=== PATIENT | male | born 1970 | race Caucasian/White ===

== ENCOUNTER 2016-06-26 11:34 | Day surgery (SDC) | payer OTHER ==
[2016-06-24 18:08] VITALS: BMI 35.5
[~2016-06-26 11:34] MED LIST: LACTATED RINGERS 1,000 ML IV SCH; LIDOCAINE 1% 20 ML VIAL (10MG/ML) FOR IV START INTRADERMA PRN
[2016-06-26] MEDS ORDERED: fentaNYL (PF) 50 MCG/ML 2 ML AMP ONE (12:37)
[2016-06-26] MEDS ORDERED: MIDAZOLAM 2 MG/2 ML VIAL ONE (12:37)
[2016-06-26] MEDS ORDERED: PROPOFOL 10 MG/ML 20 ML VIAL IV ONE (12:37)
[2016-06-26 12:38] VITALS: RESP 16; TEMP 98
--- NOTE | 2016-06-26 13:30 | P.OP ---
Date of Procedure: 06/26/16 Preoperative Diagnosis: Large villous polyp of the hepatic flexure Postoperative Diagnosis: Multiple colon polyps: Ascending colon, Hepatic flexure, Proximal transverse colon Procedure(s) Performed: Colonoscopy with polypectomy, marking of site with SPOT ink for preop localization Anesthesia: GETA Pathology: other Condition: stable Disposition: PACU Indications for Procedure: Preop localization for excision of large polyp Operative Findings: Ascending colon benign polyp completely removed Prosximal TV colon poly completely removed HEaptic flexure colon was marked Description of Procedure: The patient was brought to the endoscopy suite and placed in lateral decubitus position. IV sedation was given as per anesthesia team. A timeout was performed to verify correct patient and correct procedure. Perianal examination did not reveal any external hemorrhoids.. A well- lubricated endoscope was passed per rectally and was gradually advanced beyond the sigmoid colon, splenic flexure, transverse colon, hepatic flexure and cecum. The ileocecal valve was visualized. Then minimal diverticulosis noted without any evidence of diverticulitis. Scope was gradually withdrawn inspecting all the mucosal surfaces. A polyp was seen in the ascedning colon and prosimal transvers oclon that were both removed with hot snare polypectomy. A large villous polyp at the hepatic flexure was marked for preop localization with SPOT dye. No other polyps or masses noted. Retroflexed in the rectum and was normal but limited by stool . Prep was poor. The scope was gradually withdrawn. Patient tolerated the procedure well and was taken to post anesthesia care unit in stable condition.
[2016-06-26 13:48] VITALS: BP 136/92; PULSE 70
== END 2016-06-26 14:23 | disposition home or self-care (01) ==
LOC: ORWHC2ENDO 11:34
PROVIDERS: ATTEND Surgery
DX: D12.2 Benign neoplasm of ascending colon (principal); K57.30 Diverticulosis of large intestine without perforation or abscess without bleeding; I10 Essential (primary) hypertension; E78.5 Hyperlipidemia, unspecified; E78.00 Pure hypercholesterolemia, unspecified; Z88.0 Allergy status to penicillin; Z79.899 Other long term (current) drug therapy; Z79.82 Long term (current) use of aspirin; Z86.010 Personal history of colon polyps; Z86.73 Personal history of transient ischemic attack (TIA), and cerebral infarction without residual deficits; Z87.891 Personal history of nicotine dependence
CPT/HCPCS: 88305; 45385; 44404; J2250; J3010; J2704; 80048; 85027; 85610; 99153

== ENCOUNTER 2016-06-27 05:55 | Inpatient (IN) | payer OTHER ==
[2016-06-24 18:26] VITALS: BMI 35.5
[~2016-06-27 05:55] MED LIST changes: +DEXAMETHASONE SOD PHOSPHATE 10 MG/ML 1 ML VIAL IV ONE; +HEPARIN SODIUM,PORCINE 5,000 UNIT/ML 1 ML VIAL SQ ONE; +HYDROmorphone 1 MG/ML 1 ML SYRINGE IVP PRN; -LACTATED RINGERS 1,000 ML IV SCH; -LIDOCAINE 1% 20 ML VIAL (10MG/ML) FOR IV START INTRADERMA PRN; +MIDAZOLAM 2 MG/2 ML VIAL IV PRN; +ONDANSETRON 4 MG/2 ML VIAL IVP ONE; +SCOPOLAMINE 1.5MG/72HR PATCH TRANSDERM ONE; +ceFAZolin 2 GM in SODIUM CHLORIDE 0.9% 100 ML IVPB ONE; +metroNIDAZOLE-NS PMX 500 MG in SALINE 1 100ML.BAG IVPB ONE
[2016-06-27] MEDS ORDERED: LIDOCAINE 1% 20 ML VIAL (10MG/ML) FOR IV START INTRADERMA ONE (06:37)
[2016-06-27] MEDS ORDERED: fentaNYL (PF) 50 MCG/ML 2 ML AMP IV ONE (07:06)
[2016-06-27] MEDS ORDERED: NALOXONE 0.4 MG/ML 1 ML VIAL IV PRN (07:19)
[2016-06-27] MEDS: LACTATED RINGERS 1,000 ML IV SCH (07:29)
[2016-06-27] MEDS ORDERED: fentaNYL (PF) 50 MCG/ML 2 ML AMP ONE (07:43)
[2016-06-27] MEDS ORDERED: VECURONIUM 10 MG VIAL IV ONE (07:43)
[2016-06-27] MEDS ORDERED: SUCCINYLCHOLINE CHLORIDE 100 MG/5 ML SYR IV ONE (07:43)
[2016-06-27] MEDS ORDERED: GLYCOPYRROLATE 0.2 MG/ML 2 ML VIAL ONE (07:43)
[2016-06-27] MEDS ORDERED: hydrALAZINE HCL 20 MG/ML 1 ML VIAL ONE (07:43)
[2016-06-27] MEDS ORDERED: LABETALOL 5 MG/ML VIAL MDV ONE (07:43)
[2016-06-27] MEDS ORDERED: LIDOCAINE (PF) 10 MG/ML 2 ML VIAL ONE (07:43)
[2016-06-27] MEDS ORDERED: NEOSTIGMINE 1 MG/ML 10 ML VIAL ONE (07:43)
[2016-06-27] MEDS ORDERED: LIDOCAINE 1% INJ 10MG/ML (20 ML MDV) ONE (07:43)
[2016-06-27] MEDS ORDERED: ePHEDrine 50 MG/ML 1 ML AMP ONE (07:43)
[2016-06-27] MEDS ORDERED: PROPOFOL 10 MG/ML 20 ML VIAL IV ONE (07:43)
[2016-06-27] MEDS ORDERED: MIDAZOLAM 2 MG/2 ML VIAL ONE (07:43)
[2016-06-27] MEDS ORDERED: WATER FOR INJECTION, STERILE 10 ML VIAL IV ONE (07:43)
[2016-06-27] MEDS ORDERED: BUPIVACAIN-EPI 0.25%-1:200,000 30 ML VIAL SQ ONE (08:31)
[2016-06-27] MEDS ORDERED: LACTATED RINGERS 1,000 ML IV ONE ×3 (09:17→12:46)
--- NOTE | 2016-06-27 13:37 | P.OP ---
Date of Procedure: 06/27/16 Preoperative Diagnosis: Unresectable large villous polyp of the hepatic flexure Postoperative Diagnosis: Unresectable large villous polyp of the hepatic flexure Procedure(s) Performed: Robotic assisted and laparoscopic mobilization of the right colon , converted to open right hemicolectomy. Anesthesia: DARLEENA Surgeon: Matilda Schroeder Engineer Assistant #1: Sarah Valdez Estimated Blood Loss (ml): 45 Pathology: other Disposition: PACU Indications for Procedure: Unresectable right hepatic flexure villous polyp Operative Findings: tattoed marking for the polyp Creeping fat around the small bowel Intraabdominal adhesions Description of Procedure: Patient is a 46-year-old male who is had a previous history of traumatic brain injury. He underwent a colonoscopy last year at which time a large villous polyp was noted in the hepatic flexure and marked. He was recommended for a colon resection. He however was lost to follow-up and did not complete his cardiac workup. He will be presented earlier this year for surgery. After the colonoscopy to kristina the tattoo and appropriate cardiac clearance the patient was brought for elective resection of the area of the polyp. Informed consent was obtained from the patient's guardian. Since the patient is unable to give appropriate consent. Patient was identified in the appropriate preoperative holding area questions of the guardian were answered and informed consent was obtained and appropriate paperwork signed. Patient was taken to the operating room placed in supine position and given general anesthesia with endotracheal intubation. Abdomen was prepped and draped in the usual sterile surgical fashion. NG tube was placed as well as a Mejía catheter. Is called and preoperative antibiotics and from her prophylaxis was appropriately administered and confirmed. The patient was placed in a supine position head down and rotated to the left side. Abdominal cavity was accessed with the help of a 5 mm Optiview the left upper quadrant and abdomen was insufflated to 15 mmHg. A 12 mm port was placed in the left lower quadrant and another 8 mm port in the midline below the umbilicus and assist left 12 mm port site was placed in the left upper quadrant. Another 8 mm robotic port in the left upper quadrant as well. Another 8 mm port was placed in the right lower quadrant. The robot was then docked. Cardia was taken in arm 3 to the right lower quadrant 8 mm port bipolar grasper was taken into arm 2 through the infraumbilical port scissors with cautery was taken in the left upper quadrant 8 mm port. The area of tattooing was identified. And was noted immediately upon entry was significant amount of intra-abdominal fat with thickening of the mesentery of both the large and small bowel. There is some suspected creeping fat around the small bowel however the small bowel itself looked normal without any obvious thickening inflammation. Incision was made along the medial aspect of the right colon mesentery with the help of electrocautery extending inferiorly towards the ileocolic vessels. Dissection was carried bluntly through it however the ileocolic pedicle in spite of good traction was not identified and therefore dissection was taken towards the lateral to medial aspect. The appendix was grasped and lifted up medially. The peritoneal attachment between the right colon and the right lateral abdominal wall was taken down with the help of electric cautery extending superiorly towards the hepatic flexure. Further attachments between the terminal ileum and posterior wall were all taken down with electrocautery. Blunt dissection was done to further medialize the right colon towards the hepatic flexure. There was significant amount of fat and at that site and planes were very difficult to identify. The transverse colon was then followed towards the midline and once the omentum was pulled down the gastrohepatic ligament was identified and a clear plane incised. At this time this is was replaced with the robotic vessel sealer. With the help of an laboratory assistant arm retracting infero-laterally the gastric hepatic ligament was dissected. The the lesser sac itself was also fused without any obvious planes probably due to previous history of inflammation. Dissection carrying it laterally towards the hepatic flexure trying to release the hepatic flexure. Again due to the fat and the fusion of the planes and the inability to identify the middle colic vessel and the duodenum attention was then turned towards the lateral aspect of the right colon and blunt dissection was performed medializing the right colon and running up towards the hepatic flexure was dissected somewhat with the help of the vessel sealer. However appropriate progress was not being made and due to the fusion of the planes there was difficulty in identifying the appropriate plane at this time the decision was made to undocked the robot. 30 laparoscope was taken and the tinea were followed up all the way up to the hepatic flexure where again there was fusion of the planes with thick amount of fat not allowing us to be able to clearly visualize the plane or the pedicles. Because there was difficulty in identifying it laparoscopic attempt was abandoned. The abdomen was then opened up the midline with the help of 10 blade and deepened skin and subcutis tissue opening up the midline and the peritoneal cavity with the help of electrocautery. All ports were removed. The terminal ileum was identified and further dissection was done lateral to medially taking off the filmy adhesions between the mesentery and the posterior abdominal wall in the upper towards the jejunum was clearly identified and with the help of blunt dissection the and ligature was used sequentially so as to take down the hepatic flexure once that was done the mesentery was then identified and with the help of a clamp clamp tie and ligature method was transected extending from the window from the terminal ileum all the wounds. The towards the right transverse colon just to be on the site of the tattooing. Once all the mesentery was taken down 75 load blue stapler was fired across the transverse colon after cleaning up the omentum and the surrounding fat similar precautions were taken in terms of cleaning the fat around the terminal ileum was transected with the help of a 75 blue load stapler. The specimen was then removed and handed off. There were no obvious perforation swelling or firmness to the specimen itself suggesting malignancy. The 2 ends were then lined up after placing bowel clamps distal to it. After transecting the edges 75 blue load was fired, thus creating a sinr-hi-ceyt ileocolic anastomosis. The anastomosis completed with the help of a firing a TA 60. Suture line was dunked with the help of interrupted silk sutures. Crotch stitch was placed surgically released the tension on the crotch of the anastomosis. Omentum was then brought down and sutured around the site of the anastomosis to buttress the anastomotic site. The stenotic donut was felt to be adequate in size. Hemostasis was secured with the help of electrocautery. The abdomen was thoroughly irrigated and sucked dry. Once this was done the abdomen was closed with 0 PDS on a CT1 in a running fashion. Skin was closed with harjit. Prior to closing the midline to millimeter port sites were closed from the inside with the help of 0 PDS sutures. Skin was closed with the help of harjit. Ultrafoam was applied on the midline and Band-Aids on all the lateral port sites. Patient was extubated and taken to recovery room in stable condition. There were no competitions. Findings were as stated.
[2016-06-27] MEDS ORDERED: BENZOCAINE/MENTHOL LOZENG 1 EACH LOZENGE MUCOUS MEM PRN (13:38)
[2016-06-27] MEDS ORDERED: KETOROLAC 30 MG/ML 1 ML VIAL IVP PRN (13:38)
[2016-06-27] MEDS ORDERED: METOCLOPRAMIDE 5 MG/ML 2 ML VIAL IVP PRN (13:38)
[2016-06-27] MEDS: BUPIVACAINE (PF) 0.5% 37.5 ML, fentaNYL (PF) 1,250 MCG in SODIUM CHLORIDE 0.9% 188 ML EPIDURAL PRN ×2 (13:59→15:30)
[2016-06-27] MEDS ORDERED: LABETALOL SYRINGE 5 MG/ML IV ONE (14:14)
[2016-06-27] MEDS ORDERED: hydrALAZINE HCL 20 MG/ML 1 ML VIAL IVP ONE (14:17)
[2016-06-27] MEDS ORDERED: ENALAPRILAT 1.25 MG/ML 1 ML VIAL IVP ONE (14:25)
--- NOTE | 2016-06-27 14:39 | XR ---
EXAMINATION TYPE: XR chest 1V portable DATE OF EXAM: 06/27/2016 2:27 PM CLINICAL HISTORY: Difficulty breathing had to be intubated. TECHNIQUE: Single AP portable upright view of the chest is obtained. COMPARISON: Chest x-ray from December 28, 2015 FINDINGS: There is new endotracheal tube with tip at inferior clavicular margin just above aortic kn ob approximately 4 to 5 cm above the jose. There is persistent cardiomegaly. There is new central opacities bilaterally. Overall low lung volume s are redemonstrated. No large pleural effusion or pneumothorax is seen bilaterally. Osseous structur es are intact. IMPRESSION: 1. New endotracheal tube is satisfactory in position. 2. Low lung volumes and cardiomegaly with new mild to moderate central vascular congestion felt prese nt.
[2016-06-27] MEDS ORDERED: MIDAZOLAM 2 MG/2 ML VIAL IVP ONE (15:00)
[2016-06-27] MEDS: D5-0.45% NACL WITH KCL 20MEQ/L 1,000 ML IV SCH (17:26)
[2016-06-27 18:26] LABS: Basophils % (A) 0 %; CH 31.4; CHCM 32.9; Eosinophils % (A) 0 %; HDW 2.65; HGB 15.2 gm/dL (13.0-17.5); Luc # (Auto) 0.09; Luc % (Auto) 1; Lymphocytes # (A) 0.7 k/uL (1.0-4.8); Lymphocytes % (A) 4 %; MCHC 32.3 g/dL (31.0-37.0); MCV 95.9 fL (80.0-100.0); Mean Platelet Volume 7.2; Monocytes # (A) 0.9 k/uL (0-1.0); Monocytes % (A) 6 %; Neutrophils % (A) 89 %; RDW 13.8 % (11.5-15.5); WBC 15.8 k/uL (3.8-10.6); WBC (Perox) 15.72
[2016-06-27 18:33] LABS: Anion Gap 12 mmol/L; Blood Urea Nitrogen 11 mg/dL (9-20); Calcium 8.1 mg/dL (8.4-10.2); Carbon Dioxide 24 mmol/L (22-30); Chloride 103 mmol/L (98-107); Glucose 158 mg/dL (74-99); Non-African American GFR(MDRD) 54 (>60 ml/min/1.73 sqM); Potassium 4.8 mmol/L (3.5-5.1); Sodium 139 mmol/L (137-145)
[2016-06-27] MEDS: FAMOTIDINE 20 MG/2 ML VIAL IV SCH (21:35)
[2016-06-27] MEDS: hydrALAZINE HCL 25 MG TAB PO SCH (21:36)
[2016-06-27] MEDS: METOPROLOL TARTRATE 50 MG TAB PO SCH (21:36)
[2016-06-27] MEDS: busPIRone HCl 10 MG TAB PO SCH (21:36)
[2016-06-28] MEDS: D5-0.45% NACL WITH KCL 20MEQ/L 1,000 ML IV SCH ×3 (01:06→17:06)
[2016-06-28] MEDS: LEVOTHYROXINE 25 MCG TAB PO SCH (05:15)
[2016-06-28] MEDS: amLODIPine 10 MG TAB PO SCH (08:32)
[2016-06-28] MEDS: ALVIMOPAN 12 MG CAPSULE PO SCH ×2 (08:32→21:21)
[2016-06-28] MEDS: busPIRone HCl 10 MG TAB PO SCH ×2 (08:33→21:21)
[2016-06-28] MEDS: DONEPEZIL 10 MG TAB PO SCH (08:33)
[2016-06-28] MEDS: CITALOPRAM HYDROBROMIDE 20 MG TAB PO SCH (08:33)
[2016-06-28] MEDS: TAMSULOSIN 0.4 MG CAP.ER.24H PO SCH (08:34)
[2016-06-28] MEDS: LISINOPRIL 10 MG TAB PO SCH (08:34)
[2016-06-28] MEDS: METOPROLOL TARTRATE 50 MG TAB PO SCH ×2 (08:34→21:22)
[2016-06-28] MEDS: hydrALAZINE HCL 25 MG TAB PO SCH ×2 (08:35→21:21)
[2016-06-28] MEDS: FAMOTIDINE 20 MG/2 ML VIAL IV SCH ×2 (08:38→21:22)
[2016-06-28] MEDS: BUPIVACAINE (PF) 0.5% 37.5 ML, fentaNYL (PF) 1,250 MCG in SODIUM CHLORIDE 0.9% 188 ML EPIDURAL PRN (11:31)
--- NOTE | 2016-06-28 14:45 | P.PN ---
Subjective 46-year-old gentleman being seen with the attending this afternoon. no new postop events. Patient is sitting up in bed pleasant cooperative watching television pain medication has been effective for pain control current has an epidural in place patient is postop June 27 Robotic assisted and laparoscopic mobilization of the right colon , converted to open right hemicolectomy for a Unresectable large villous polyp of the hepatic flexure Objective - Vital Signs Vital signs: Vital Signs Temp 98 F 06/28/16 07:00 Pulse 81 06/28/16 07:00 Resp 18 06/28/16 07:00 BP 169/101 06/28/16 07:00 Pulse Ox 94 L 06/28/16 07:00 Intake & Output 06/27/16 06/28/16 06/28/16 18:59 06:59 18:59 Intake Total 3052 300 120 Output Total 2200 2450 Balance 852 -2150 120 Weight 99.79 kg 99.79 kg Intake: IV 3052 Intake, IV Titration 300 Amount D5-0.45% NaCl with KCl 300 20Meq/l 1,000 ml @ 125 mls/hr IV .Q8H [facility] Rx#: [id number] Oral 120 Output: Urine 1950 2450 Uretheral (Mejía) 2250 Estimated Blood Loss 250 Other: Voiding Method Indwelling Catheter Indwelling Catheter Indwelling Catheter # Voids 1 - Exam GENERAL APPEARANCE: 46-year-old male patient is alert, oriented, in no acute distress. VITAL SIGNS: Reviewed HEENT: Head is normocephalic and atraumatic. Pupils are equal and reactive. The nares are patent. Oropharynx is clear without lesions. NECK: Supple without lymphadenopathy. Traches midline. HEART: S1, S2. Regular rate and rhythm. No murmur noted LUNGS: No crackles or wheezes are heard. On room air ABDOMEN: Soft surgical sites no redness dressings are dry. A few hypoactive bowel tones noted indwelling Mejía catheter in place no reports of nausea vomiting reportedly tolerating clear liquid diet no stool is not passing gas EXTREMITIES: Normal skin color and turgor. No cyanosis, rash, ulceration, clubbing or edema. Radial pedal pulses are 2/4 bilaterally. Venodyne's on to the bilateral lower extremities NEUROLOGICAL: No focal deficits. Strength and sensation are grossly intact. - Labs CBC & Chem 7: 06/27/16 18:09 06/27/16 18:09 Labs: Abnormal Lab Results - Last 24 Hours (Table) 06/27/16 06/27/16 Range/Units 18:09 18:09 WBC 15.8 H (3.8-10.6) k/uL Neutrophils # 14.0 H (1.3-7.7) k/uL Lymphocytes # 0.7 L (1.0-4.8) k/uL Creatinine 1.40 H (0.66-1.25) mg/dL Glucose 158 H (74-99) mg/dL Calcium 8.1 L (8.4-10.2) mg/dL Assessment and Plan Plan: Impression Unresectable large villous polyp of the hepatic flexure Robotic assisted and laparoscopic mobilization of the right colon , converted to open right hemicolectomy. 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 Alexandre Wiggins and the plan of care have been dictated as directed. Hannah George nurse practitioner acting as a scribe for Dr. Schroeder
--- NOTE | 2016-06-28 15:55 | XR ---
EXAMINATION TYPE: XR chest 1V portable DATE OF EXAM: 06/28/2016 3:23 PM COMPARISON: 06/27/2016 HISTORY: Postop extubation TECHNIQUE: Single frontal view of the chest is obtained. FINDINGS: There is areas of diffuse subsegmental consolidation. Perihilar interstitial changes are seen. The heart is enlarged. There is interval removal of an ET tube. IMPRESSION: 1. ET tube removal with persistent areas of subsegmental consolidation may been the basis of atelecta sis or infiltrate. Correlate clinically.
--- NOTE | 2016-06-28 18:52 | P.PN ---
Progress Note - Text Postoperative day 1 status post right hemicolectomy, epidural catheter placed for postoperative pain control, patient doing well, vital signs stable, pain well controlled, patient currently on combination of confusion BUPIVACAINE/ fentanyl at 6 mL per hour, epidural site okay, the patient had no motor deficit. Assessment and plan= postoperative day 1, adequate pain control, we'll continue epidural infusion at 6 mL per hour
--- NOTE | 2016-06-28 20:40 | CONS ---
DATE OF CONSULTATION: REASON FOR CONSULTATION: Management of chronic medical conditions, including hypertension. HISTORY OF PRESENTING ILLNESS: This is a 46-year-old gentleman who initially underwent a colonoscopy and was noted to have a large polyp which was tattooed. Patient underwent robotic-assisted colonic resection. Patient apparently has a history of a traumatic brain injury in the past. Today patient was seen in consultation. Denied having any additional complaints. The patient was apparently tolerating liquids. States to have passed some gas. He does not have any chest pressure, difficulty in breathing. PAST MEDICAL HISTORY: 1. Traumatic brain injury. 2. Hypertension. 3. Chronic pain syndrome. 4. CKD stage III. SURGERY: Recent colonoscopy. SOCIAL HISTORY: Denies illicit drug use, alcohol or tobacco use. Patient does have a history of traumatic brain injury. FAMILY HISTORY: Not pertinent to the current admission. REVIEW OF SYSTEMS: Fourteen-point review of systems was done; none pertinent other than above-mentioned. Medications were reviewed on admission and reconciled appropriately. PHYSICAL EXAMINATION: VITAL SIGNS: Temperature 98. Heart rate is 81, respiratory rate 18. Blood pressure is 169/101. Saturating 94% on room air. GENERAL APPEARANCE: Does not appear to be in distress. Neck is supple. No JVD. LUNGS: Good air entry. Clear to auscultation. HEART: S1, S2 heard. Regular rate and rhythm. No murmurs appreciated. ABDOMEN: A bandage is noted on midline incision and multiple trocar incisions. Bowel sounds are hypoactive. Slightly distended; however, appropriately tender to palpation. LOWER EXTREMITIES: No edema noted. Mejía catheter is noted. NEURO EXAM: Moves all 4 extremities. No focal deficits noted. LABS: White count is 15.8, hemoglobin 15.2, hematocrit 47, platelets of 232. Sodium 139, potassium 4.8, chloride 102, bicarb 24. BUN 11, creatinine 1.40. ASSESSMENT AND PLAN: 1. Right colonic large polyp, status post surgical resection. 2. History of hypertension, slightly accelerated, without any symptoms of hypertension. 3. Traumatic brain injury. 4. Remote history of cerebrovascular accident. 5. Chronic kidney disease, stage III, which is stable. 6. Acute hypoxic respiratory failure which is improved, expected from recent surgery. 7. History of seizure disorder. 8. Hypothyroidism. PLAN: Medications were reviewed today. Patient's lisinopril will be increased to 10 mg p.o. b.i.d. Diet advancement per General Surgery. Thank you for the consultation. Will follow the patient. Patient's pain appears to be appropriately controlled.
[2016-06-29] MEDS: D5-0.45% NACL WITH KCL 20MEQ/L 1,000 ML IV SCH ×4 (03:01→22:01)
[2016-06-29] MEDS: LEVOTHYROXINE 25 MCG TAB PO SCH (06:33)
[2016-06-29] MEDS: ALVIMOPAN 12 MG CAPSULE PO SCH ×2 (09:38→22:05)
[2016-06-29] MEDS: busPIRone HCl 10 MG TAB PO SCH ×2 (09:39→22:05)
[2016-06-29] MEDS: CITALOPRAM HYDROBROMIDE 20 MG TAB PO SCH (09:41)
[2016-06-29] MEDS: amLODIPine 10 MG TAB PO SCH (09:41)
[2016-06-29] MEDS: DONEPEZIL 10 MG TAB PO SCH (09:41)
[2016-06-29] MEDS: LISINOPRIL 10 MG TAB PO SCH (09:42)
[2016-06-29] MEDS: FAMOTIDINE 20 MG/2 ML VIAL IV SCH ×2 (09:42→22:05)
[2016-06-29] MEDS: hydrALAZINE HCL 25 MG TAB PO SCH ×2 (09:42→22:06)
--- NOTE | 2016-06-29 09:42 | P.PN ---
Progress Note - Text This is a 46-year-old man postop day #2 status post colectomy. The patient has an epidural catheter in his back for postop pain control. I saw the patient was lying in his bed was alert oriented 3 in no apparent distress. He denies any pain at this time. The patient has been able to ambulate with no neurologic problems in the lower extremities. We will continue the same management of his postop incisional pain.
[2016-06-29] MEDS: TAMSULOSIN 0.4 MG CAP.ER.24H PO SCH (09:43)
[2016-06-29] MEDS: METOPROLOL TARTRATE 50 MG TAB PO SCH ×2 (09:43→22:06)
--- NOTE | 2016-06-29 11:23 | P.PN ---
Subjective Principal diagnosis: Villous adenoma of the colon 46 years old male status post robotic-assisted laparoscopic right hemicolectomy converted into open. Postop day #3. He has epidural in place. Mejía catheter in place. Tolerating clear liquid diet. No bowel movements yet. No nausea or vomiting. No new complaints Objective - Vital Signs Vital signs: Vital Signs Temp 98.8 F 06/29/16 07:00 Pulse 85 06/29/16 07:00 Resp 16 06/29/16 07:00 BP 164/92 06/29/16 07:00 Pulse Ox 92 L 06/29/16 07:00 Intake & Output 06/28/16 06/29/16 06/29/16 18:59 06:59 18:59 Intake Total 1600 1179 50 Output Total 750 800 Balance 850 379 50 Intake: IV 1179 Bupivacaine (Pf) 0.5% 37. 54 5 ml fentaNYL (PF) 1,250 mcg In Sodium Chloride 0. 9% 188 ml @ Per Protocol EPIDURAL .Q0M PRN Rx#: [id number] D5-0.45% NaCl with KCl 1125 20Meq/l 1,000 ml @ 125 mls/hr IV .Q8H [facility] Rx#: [id number] Intake, IV Titration 1000 Amount D5-0.45% NaCl with KCl 1000 20Meq/l 1,000 ml @ 125 mls/hr IV .Q8H [facility] Rx#: [id number] Oral 600 50 Output: Urine 750 800 Other: Voiding Method Indwelling Catheter Indwelling Catheter - Exam General: Patient is alert and oriented to time, place and person and cooperative with exam. HEENT: No pallor, no icterus Chest: Bilateral equal breath sounds present. No wheezes, no crackles. Cardiovascular: Regular rate and rhythm. Abdomen: Soft, nontender, nondistended. I - Labs CBC & Chem 7: 06/27/16 18:09 06/27/16 18:09 Assessment and Plan (1) Adenoma Status: Acute (2) History of CVA (cerebrovascular accident) Status: Acute (3) Polyp of colon Status: Acute Plan: Unresectable large villous polyp of the hepatic flexure Robotic assisted and laparoscopic mobilization of the right colon , converted to open right hemicolectomy. 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 Continue epidural and Mejía catheter 2. Continue clear liquid diet 3. Check CBC and CMP 4. Await bowel function 5. DVT and GI prophylaxis
[2016-06-29 11:53] LABS: Basophils % (A) 0 %; CH 31.2; Eosinophils # (A) 0.1 k/uL (0-0.7); Eosinophils % (A) 1 %; HCT 46.9 % (39.0-53.0); HDW 2.58; Luc # (Auto) 0.19; Luc % (Auto) 2; Lymphocytes # (A) 1.1 k/uL (1.0-4.8); Lymphocytes % (A) 9 %; MCH 31.3 pg (25.0-35.0); MCHC 31.9 g/dL (31.0-37.0); MCV 97.9 fL (80.0-100.0); Mean Platelet Volume 7.4; Monocytes # (A) 0.7 k/uL (0-1.0); Monocytes % (A) 6 %; Neutrophils # (A) 9.5 k/uL (1.3-7.7); Neutrophils % (A) 82 %; RBC 4.79 m/uL (4.30-5.90); RDW 13.7 % (11.5-15.5); WBC 11.5 k/uL (3.8-10.6); WBC (Perox) 12.31
[2016-06-29 11:59] LABS: ALT 30 U/L (21-72); AST 27 U/L (17-59); Alkaline Phosphatase 65 U/L (38-126); Anion Gap 9 mmol/L; Blood Urea Nitrogen 11 mg/dL (9-20); Calcium 7.9 mg/dL (8.4-10.2); Carbon Dioxide 23 mmol/L (22-30); Chloride 107 mmol/L (98-107); Glucose 138 mg/dL (74-99); Non-African American GFR(MDRD) >60 (>60 ml/min/1.73 sqM); Potassium 4.6 mmol/L (3.5-5.1); Sodium 139 mmol/L (137-145); Total Bilirubin 0.7 mg/dL (0.2-1.3); Total Protein 6.3 g/dL (6.3-8.2)
[2016-06-29] MEDS: HEPARIN SODIUM,PORCINE 5,000 UNIT/ML 1 ML VIAL SQ SCH ×2 (18:23→23:55)
[2016-06-29] MEDS: BUPIVACAINE (PF) 0.5% 37.5 ML, fentaNYL (PF) 1,250 MCG in SODIUM CHLORIDE 0.9% 188 ML EPIDURAL PRN (21:52)
[2016-06-30] MEDS: LEVOTHYROXINE 25 MCG TAB PO SCH (07:15)
[2016-06-30] MEDS: D5-0.45% NACL WITH KCL 20MEQ/L 1,000 ML IV SCH (09:06)
[2016-06-30] MEDS: ALVIMOPAN 12 MG CAPSULE PO SCH ×2 (09:07→22:00)
[2016-06-30] MEDS: amLODIPine 10 MG TAB PO SCH (09:07)
[2016-06-30] MEDS: HEPARIN SODIUM,PORCINE 5,000 UNIT/ML 1 ML VIAL SQ SCH ×2 (09:07→16:04)
[2016-06-30] MEDS: METOPROLOL TARTRATE 50 MG TAB PO SCH ×2 (09:08→22:00)
[2016-06-30] MEDS: hydrALAZINE HCL 25 MG TAB PO SCH ×2 (09:08→22:00)
[2016-06-30] MEDS: CITALOPRAM HYDROBROMIDE 20 MG TAB PO SCH (09:08)
[2016-06-30] MEDS: LISINOPRIL 10 MG TAB PO SCH (09:09)
[2016-06-30] MEDS: DONEPEZIL 10 MG TAB PO SCH (09:09)
[2016-06-30] MEDS: FAMOTIDINE 20 MG/2 ML VIAL IV SCH (09:09)
[2016-06-30] MEDS: busPIRone HCl 10 MG TAB PO SCH ×2 (09:09→22:00)
[2016-06-30] MEDS: TAMSULOSIN 0.4 MG CAP.ER.24H PO SCH (09:09)
--- NOTE | 2016-06-30 11:58 | P.PN ---
Progress Note - Text Patient is postoperative day# 3 status post colectomy, epidural catheter placed for postoperative analgesia, patient currently on epidural infusion and the pain is well controlled, patient has no side effect of the medication, epidural site okay, patient has no motor deficit, Assessment and plan= acute postoperative pain, pain is under control, and we will discontinue the epidural catheter today.
--- NOTE | 2016-06-30 14:38 | P.PN ---
Subjective Principal diagnosis: Villous adenoma of the colon 46 years old male status post robotic-assisted laparoscopic right hemicolectomy converted into open. Postop day #4. He has epidural in place. Mejía catheter in place. Tolerating clear liquid diet. He has a BM. No nausea or vomiting. No new complaints Objective - Vital Signs Vital signs: Vital Signs Temp 98.4 F 06/30/16 07:00 Pulse 68 06/30/16 08:00 Resp 18 06/30/16 08:00 BP 145/81 06/30/16 07:00 Pulse Ox 94 L 06/30/16 07:00 Intake & Output 06/29/16 06/30/16 06/30/16 18:59 06:59 18:59 Intake Total 1393 821.1 42 Output Total 481 522 6445 Balance 993 621.1 -1458 Weight 99.79 kg 99.79 kg Intake: IV 813 375 42 Bupivacaine (Pf) 0.5% 37. 42 5 ml fentaNYL (PF) 1,250 mcg In Sodium Chloride 0. 9% 188 ml @ Per Protocol EPIDURAL .Q0M PRN Rx#: [id number] D5-0.45% NaCl with KCl 813 375 20Meq/l 1,000 ml @ 125 mls/hr IV .Q8H [facility] Rx#: [id number] Intake, IV Titration 206.1 Amount Bupivacaine (Pf) 0.5% 37. 206.1 5 ml fentaNYL (PF) 1,250 mcg In Sodium Chloride 0. 9% 188 ml @ Per Protocol EPIDURAL .Q0M [facility] Rx#: [id number] Oral 580 240 Output: Urine 383 325 2276 Uretheral (Mejía) 400 Other: Voiding Method Indwelling Catheter Indwelling Catheter Indwelling Catheter # Voids 1 - Exam General: Patient is alert and oriented to time, place and person and cooperative with exam. HEENT: No pallor, no icterus Chest: Bilateral equal breath sounds present. No wheezes, no crackles. Cardiovascular: Regular rate and rhythm. Abdomen: Soft, nontender, nondistended. I - Labs CBC & Chem 7: 06/29/16 11:39 06/29/16 11:35 Assessment and Plan (1) Adenoma Status: Acute (2) History of CVA (cerebrovascular accident) Status: Acute (3) Polyp of colon Status: Acute Plan: Unresectable large villous polyp of the hepatic flexure Robotic assisted and laparoscopic mobilization of the right colon , converted to open right hemicolectomy. 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 Discontinue epidural and Mejía catheter 2. Soft diet 3. Check CBC and CMP-normal 4. DC IV fluids. Oral pain meds 5. DVT and GI prophylaxis 6. Discharge planning in am
[2016-06-30] MEDS: HYDROcodone/APAP 5-325MG 1 EACH TAB PO PRN ×2 (17:48→21:58)
[2016-07-01 01:18] VITALS: RESP 16
[2016-07-01] MEDS: LISINOPRIL 10 MG TAB PO SCH (08:09)
[2016-07-01] MEDS: CITALOPRAM HYDROBROMIDE 20 MG TAB PO SCH (08:09)
[2016-07-01] MEDS: LEVOTHYROXINE 25 MCG TAB PO SCH (08:09)
[2016-07-01] MEDS: HEPARIN SODIUM,PORCINE 5,000 UNIT/ML 1 ML VIAL SQ SCH ×3 (08:09→17:28)
[2016-07-01] MEDS: TAMSULOSIN 0.4 MG CAP.ER.24H PO SCH (08:10)
[2016-07-01] MEDS: hydrALAZINE HCL 25 MG TAB PO SCH (08:10)
[2016-07-01] MEDS: busPIRone HCl 10 MG TAB PO SCH (08:10)
[2016-07-01] MEDS: DONEPEZIL 10 MG TAB PO SCH (08:11)
[2016-07-01] MEDS: METOPROLOL TARTRATE 50 MG TAB PO SCH (08:11)
[2016-07-01] MEDS: ALVIMOPAN 12 MG CAPSULE PO SCH (08:13)
[2016-07-01] MEDS: amLODIPine 10 MG TAB PO SCH (08:50)
[2016-07-01] MEDS: HYDROcodone/APAP 5-325MG 1 EACH TAB PO PRN (08:53)
--- NOTE | 2016-07-01 11:30 | P.DS ---
Providers Date of admission: 06/27/16 05:55 Expected date of discharge: 07/01/16 Attending physician: Matilda Schroeder Consults: 06/27/16 13:38 Consult Physician Routine Consulting Provider: Leno Melgoza Consult Reason/Comments: medical management Do you want consulting provider notified?: Yes Primary care physician: Gray Meza - Discharge Diagnosis(es) (1) Adenoma Current Visit: Yes Status: Acute (2) History of CVA (cerebrovascular accident) Current Visit: No Status: Acute (3) Hypertension Current Visit: No Status: Acute (4) Polyp of colon Current Visit: No Status: Acute Hospital Course: Patient is a 46-year-old male who was found to have an unresectable polyp in the hepatic flexure into than 16 and was lost to follow-up secondary to multiple cardiac issues. He was seen again earlier this year following cardiac clearance. He underwent a colonoscopy for marking of the large polyp which was unresectable. Once the colonoscopy was done he was appropriately marked the patient was brought in for a robot-assisted laparoscopic RESECTION. Due to previous surgery had extensive adhesions that could not be completed and there was converted to an open procedure and extended right hemicolectomy was done with appropriate lymph node clearance. Patient tolerated procedure well postoperatively he was placed in epidural and the enhanced recovery protocol. He's been ablating well breathing well as tolerated regular diet and passing flatus and has had a bowel movement. Epidural catheter has been taken out is urinating well and his pain is well-controlled with oral pain medications. The patient is being being discharged to care with his healthcare provider. He's to follow-up in my clinic in a week's time. We will do an abdominal binder as needed. He will have a regular diet. Pathology still pending. Overall the patient is a very well and being discharged on postop day 4 Procedures: Extended right hemicolectomy , Robot assisted converted to open. Patient Condition at Discharge: Fair Plan - Discharge Summary New Discharge Prescriptions: HYDROcodone/APAP 5-325MG [[place] 5-325] 1 tab PO Q4HR PRN #18 tab PRN Reason: Pain Discharge Medication List RX: Aspirin 325 mg PO HS 02/15/16 [History] RX: Atorvastatin [Lipitor] 80 mg PO HS 02/15/16 [History] RX: Cholestyramine (with Sugar) [[place] Packet] 4 gm PO BID 02/15/16 [History] RX: Citalopram Hydrobromide 20 mg PO DAILY 02/15/16 [History] RX: Donepezil [Aricept] 10 mg PO DAILY 02/15/16 [History] RX: Famotidine 20 mg PO DAILY 02/15/16 [History] RX: Hydrocodone/Acetaminophen [[place] 5-325] 1 tab PO Q6HR PRN 02/15/16 [History] RX: Metoprolol Tartrate [Lopressor] 50 mg PO BID 02/15/16 [History] RX: Tamsulosin [Flomax] 0.4 mg PO DAILY 02/15/16 [History] RX: amLODIPine [Norvasc] 10 mg PO DAILY 02/15/16 [History] RX: hydrALAZINE HCL [Apresoline] 25 mg PO BID 02/15/16 [History] RX: levETIRAcetam [Keppra] 1,500 mg PO BID@0700,1900 02/15/16 [History] RX: Lisinopril [Zestril] 10 mg PO DAILY 03/01/16 [History] RX: QUEtiapine FUMARATE [SEROquel XR] 300 mg PO HS 03/01/16 [History] Levothyroxine Sodium [Synthroid] 25 mcg PO DAILY 06/24/16 [History] RX: busPIRone HCL 10 mg PO BID 06/24/16 [History] HYDROcodone/APAP 5-325MG [[place] 5-325] 1 tab PO Q4HR PRN #18 tab 07/01/16 [Rx] Follow up Appointment(s)/Referral(s): Matilda Schroeder MD [STAFF PHYSICIAN] - 1 Week [facility] Visiting Nurse, [NON-STAFF] - 1 Week Activity/Diet/Wound Care/Special Instructions: Regular diet No heavy lifting. Change dressing regularly OK to shower Discharge Disposition: HOME WITH HOME HEALTH SERVICES Pending Studies Pending Results: Pathology from his hemicolectomy
[2016-07-01 15:40] VITALS: BP 147/82; PULSE 73; TEMP 98.4
--- NOTE | 2016-07-02 10:23 | PN ---
DATE OF SERVICE: 07/01/2016 PRESENTING COMPLAINT: Abdominal surgery. INTERVAL HISTORY: I saw this patient this morning, status post abdominal surgery. Patient started on a regular diet. Did have a bowel movement. Some pain is present. Patient is feeling well. Review of systems done for constitutional, cardiovascular, GI, pulmonary; relevant findings as above. Current medications are reviewed. On examination, temperature 98.4, pulse 81, respirations 16, blood pressure 135/84, pulse ox 96% on room air. GENERAL APPEARANCE: Lying in bed, comfortable. EYES: Pupils equal. Conjunctivae normal. NECK: JVD not raised. Mass not palpable. Respiratory effort normal. Lungs are clear. CARDIOVASCULAR: First and second sounds normal. No edema. ABDOMEN: Distended, soft, incision healing well, bowel sounds present. PSYCHIATRY: Awake, answering simple questions. INVESTIGATIONS: Last white count 11.5, hemoglobin last was 15. Potassium was 4.6. ASSESSMENT: 1. Essential hypertension, now controlled. 2. History of traumatic brain injury. 3. Chronic kidney disease stage III, probably from hypertensive nephrosclerosis. 4. Hypothyroidism. 5. Hyperlipidemia. 6. Seizure disorder, chronic. 7. Status post abdominal surgery. PLAN: Patient overall blood pressure is looking good except for one reading that was up but did well otherwise. Talked to the patient, all his questions were answered. Thank you, Dr. Schroeder. Patient to follow with his family doctor.
== END 2016-07-01 18:21 | disposition home health service (06) | DRG 330 ==
LOC: 2ORWHC 05:55 → 3SUR 13:36
PROVIDERS: ADMIT Surgery; ATTEND Surgery
PROC: 0DTF0ZZ Resection of Right Large Intestine, Open Approach (ICD-10-PCS; principal; 2016-06-27 07:30)
DX: D12.3 Benign neoplasm of transverse colon (principal); I69.951 Hemiplegia and hemiparesis following unspecified cerebrovascular disease affecting right dominant side; N18.3 Chronic kidney disease, stage 3 (moderate); I12.9 Hypertensive chronic kidney disease with stage 1 through stage 4 chronic kidney disease, or unspecified chronic kidney disease; E03.9 Hypothyroidism, unspecified; E78.5 Hyperlipidemia, unspecified; G40.909 Epilepsy, unspecified, not intractable, without status epilepticus; G89.4 Chronic pain syndrome; I69.998 Other sequelae following unspecified cerebrovascular disease; I69.911 Memory deficit following unspecified cerebrovascular disease; H54.41 Blindness, right eye, normal vision left eye; E78.00 Pure hypercholesterolemia, unspecified; F41.9 Anxiety disorder, unspecified; M19.90 Unspecified osteoarthritis, unspecified site; F32.9 Major depressive disorder, single episode, unspecified; E66.9 Obesity, unspecified; Z68.35 Body mass index [BMI] 35.0-35.9, adult; Z53.31 Laparoscopic surgical procedure converted to open procedure; Z79.82 Long term (current) use of aspirin; Z79.899 Other long term (current) drug therapy; Z88.0 Allergy status to penicillin; Z87.891 Personal history of nicotine dependence; Z82.49 Family history of ischemic heart disease and other diseases of the circulatory system
CPT/HCPCS: 71010; 80048; 80053; 85025; 86850; 86900; 86901; 88309

== ENCOUNTER → 2018-01-23 | Outpatient (CLI) | payer OTHER | END | disposition home or self-care (01) | LOC: LABPAT 13:41 | PROVIDERS: ATTEND Surgery Plastic and Reconstructive Surgery | DX: Z01.810 Encounter for preprocedural cardiovascular examination (principal) | CPT/HCPCS: 93005 ==

== ENCOUNTER 2018-01-30 08:50 | Day surgery (SDC) | payer OTHER ==
[2018-01-23 16:00] VITALS: BMI 31.0
--- NOTE | 2018-01-29 17:57 | P.GSHP ---
History of Present Illness H&P Date: 01/30/18 CHIEF COMPLAINT: Ventral hernia HISTORY OF PRESENT ILLNESS: The patient is a 47-year-old male who presents with a history of swelling and pain along the abdomen from a hernia. Now he presents for surgical intervention. PAST MEDICAL HISTORY: Please see list. PAST SURGICAL HISTORY: Please see list. MEDICATIONS: Please see list. ALLERGIES: Please see list. SOCIAL HISTORY: No illicit drug use FAMILY HISTORY: No reports of Crohn disease or ulcerative colitis. REVIEW OF ORGAN SYSTEMS: CONSTITUTIONAL: No reports of fevers or chills. No reports of weight loss despite prior attempts. GI: Denies any blood in stools or constipation. PHYSICAL EXAM: VITAL SIGNS: Stable GENERAL: Well-developed pleasant male in no acute distress. HEENT: No scleral icterus. Extraocular movements grossly intact. Moist buccal mucosa. NECK: Supple without lymphadenopathy. CHEST: Unlabored respirations. Equal bilateral excursions. CARDIOVASCULAR: Regular rate and rhythm. Distal 2+ pulses. ABDOMEN: Soft, nondistended. Palpable defect of the abdomen. No peritoneal signs. MUSCULOSKELETAL: No clubbing, cyanosis, or edema. ASSESSMENT: 1. Ventral hernia PLAN: 1. Recommend proceeding with robotic ventral hernia repair with mesh. 2. Benefits and risks of surgical intervention was discussed including possibility of open technique. 3. DVT prophylaxis. 4. Antibiotic prophylaxis. 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 QUESTIONABLE ABN STRESS TEST 2015 BUT THEN TOLD WNL FOR HIM-heart cath was wnl per caregiver History of Any Multi-Drug Resistant Organisms: None Reported Past Surgical History: Bowel Resection, Heart Catheterization Additional Past Surgical History / Comment(s): COLONOSCOPY. open colon resection after robotic attempt 2016 Past Anesthesia/Blood Transfusion Reactions: No Reported Reaction Past Psychological History: Anxiety, Depression Smoking Status: Former smoker Past Alcohol Use History: Occasional Additional Past Alcohol Use History / Comment(s): QUIT SMOKING 2012. SMOKED FOR 10 YRS, LESS THAN 1PPD. Past Drug Use History: Marijuana Additional Drug Use History / Comment(s): smokes several times per week - Past Family History Mother Family Medical History: Cancer Medications and Allergies Home Medications Medication Instructions Recorded Confirmed Type Aspirin 325 mg PO HS 02/15/16 01/23/18 History Atorvastatin [Lipitor] 80 mg PO HS 02/15/16 01/23/18 History Citalopram Hydrobromide 40 mg PO DAILY 02/15/16 01/23/18 History [Citalopram HBr] Donepezil [Aricept] 10 mg PO DAILY 02/15/16 01/23/18 History Famotidine 20 mg PO DAILY 02/15/16 01/23/18 History Hydrocodone/Acetaminophen [[place] 1 tab PO Q6HR PRN 02/15/16 01/23/18 History 5-325] Metoprolol Tartrate [Lopressor] 50 mg PO BID 02/15/16 01/23/18 History Tamsulosin [Flomax] 0.4 mg PO DAILY 02/15/16 01/23/18 History amLODIPine [Norvasc] 10 mg PO DAILY 02/15/16 01/23/18 History hydrALAZINE HCL [Apresoline] 25 mg PO BID 02/15/16 01/23/18 History levETIRAcetam [Keppra] 1,500 mg PO BID@0700,1900 02/15/16 01/23/18 History Lisinopril [Zestril] 10 mg PO DAILY 03/01/16 01/23/18 History QUEtiapine FUMARATE [SEROquel XR] 150 mg PO HS 03/01/16 01/23/18 History Levothyroxine Sodium [Synthroid] 25 mcg PO DAILY 06/24/16 01/23/18 History lamoTRIgine [LaMICtal Xr] 50 mg PO DAILY 01/23/18 01/23/18 History Allergies Allergy/AdvReac Type Severity Reaction Status Date / Time Penicillins Allergy Unknown Verified 01/23/18 16:00 Childhood
[~2018-01-30 08:50] MED LIST changes: -DEXAMETHASONE SOD PHOSPHATE 10 MG/ML 1 ML VIAL IV ONE; +HEPARIN SODIUM,PORCINE 5,000 UNIT/ML 1 ML VIAL SQ STA; -HYDROmorphone 1 MG/ML 1 ML SYRINGE IVP PRN; -MIDAZOLAM 2 MG/2 ML VIAL IV PRN; -ONDANSETRON 4 MG/2 ML VIAL IVP ONE; -SCOPOLAMINE 1.5MG/72HR PATCH TRANSDERM ONE; -ceFAZolin 2 GM in SODIUM CHLORIDE 0.9% 100 ML IVPB ONE; +ceFAZolin IN SWFI 2 GM/20 ML SYRINGE IVP ONE; -metroNIDAZOLE-NS PMX 500 MG in SALINE 1 100ML.BAG IVPB ONE
[2018-01-30] MEDS ORDERED: LIDOCAINE 1% 20 ML VIAL (10MG/ML) FOR IV START INTRADERMA ONE (09:38)
[2018-01-30] MEDS ORDERED: LACTATED RINGERS 1,000 ML IV ONE (09:38)
[2018-01-30] MEDS ORDERED: ONDANSETRON 4 MG/2 ML VIAL IVP ONE ×2 (09:45→12:23)
[2018-01-30] MEDS ORDERED: DEXAMETHASONE SOD PHOS (MDV) 100 MG/10 ML VIAL IVP ONE (09:45)
[2018-01-30] MEDS ORDERED: MIDAZOLAM 2 MG/2 ML VIAL IVP ONE (10:18)
[2018-01-30] MEDS ORDERED: GLYCOPYRROLATE 0.2 MG/ML 2 ML VIAL ONE (10:55)
[2018-01-30] MEDS ORDERED: MIDAZOLAM 2 MG/2 ML VIAL ONE (10:55)
[2018-01-30] MEDS ORDERED: fentaNYL (PF) 50 MCG/ML 2 ML AMP ONE (10:55)
[2018-01-30] MEDS ORDERED: ROPIVACAINE 5 MG/ML 30 ML VIAL ONE (10:55)
[2018-01-30] MEDS ORDERED: LIDOCAINE 1% INJ 10MG/ML (20 ML MDV) ONE (10:55)
[2018-01-30] MEDS ORDERED: PROPOFOL 10 MG/ML 20 ML VIAL IV ONE (10:55)
[2018-01-30] MEDS ORDERED: VECURONIUM 10 MG VIAL IV ONE (10:55)
[2018-01-30] MEDS ORDERED: NEOSTIGMINE 1 MG/ML 10 ML VIAL ONE (10:55)
[2018-01-30] MEDS ORDERED: SUCCINYLCHOLINE CHLORIDE VIAL 200 MG/10 ML VIAL IV ONE (10:55)
[2018-01-30] MEDS ORDERED: BUPIVACAIN-EPI 0.5%-1:200,000 30 ML VIAL SQ ONE (11:31)
--- NOTE | 2018-01-30 12:34 | P.OP ---
Date of Procedure: 01/30/18 Description of Procedure: SURGEON: SHANNEN FERRERA MD ACTIVE DIRECTORY SYSTEMS ADMINISTRATOR: PRATIMA MA PREOPERATIVE DIAGNOSES: 1. Initial incisional hernia 2. Obesity due to excess calories, BMI 31.0 3. Hypertensive heart disease 4. Seizure disorder 5. Depressive disorder 6. Generalized anxiety disorder 7. Hyperlipidemia 8. Gastroesophageal reflux disease 9. Previous history of stroke with sequela POSTOPERATIVE DIAGNOSES: 1. Initial incisional hernia, without obstruction, 10 x 9 cm 2. Obesity due to excess calories, BMI 31.0 3. Hypertensive heart disease 4. Seizure disorder 5. Depressive disorder 6. Generalized anxiety disorder 7. Hyperlipidemia 8. Gastroesophageal reflux disease 9. Previous history of stroke with sequela 10. Peritoneal adhesions from previous surgery, greater omentum to anterior abdominal wall midline OPERATION: 1. Robotic-assisted da Sidney Xi laparoscopic lysis of adhesions over 30 minutes 1. Robotic-assisted da Sidney Xi laparoscopic repair of 10 cm x 9 cm initial incarcerated ventral hernia mesh, ventralight ST mesh 15 x 20 cm ANESTHESIA: General with local ESTIMATED BLOOD LOSS: 5 mL. SPECIMENS: None. COMPLICATIONS: None. INDICATIONS: The patient is a 47-year-old male who presents with incisional ventral hernia. Surgical intervention with laparoscopic versus robotic and open techniques were reviewed. Placement of mesh was also reviewed. Benefits and risks were thoroughly described. Informed consent was obtained. DESCRIPTION OF PROCEDURE: The patient was brought into the operating room and laid in supine position. After general induction, the abdomen had been prepped and draped in standard sterile fashion. Ioban draping was also placed. Prior to incision, a timeout protocol was confirmed with surgical team regarding the patient's name including procedures to be performed. The robot was primed prior to the procedure. A field block using local anesthetis was placed along hernia site including the proposed port sites. Initial incision was made with an #11 blade along the left upper quadrant. A 0 degree 5 mm laparoscopic trocar entry was performed. Diagnostic laparoscopy demonstrated moderate peritoneal adhesions involving the midline epigastrium of greater omentum to anterior abdominal wall. A 12 mm trocar was placed along the left lateral abdominal wall approximately 12 cm lateral to the lower midline. An 8 mm port was placed along the left mid lateral quadrant under direct localization. The 5-mm port was exchanged for an 8 mm robotic port. Placements of the ports were 15 cm from the target anatomy and approximately 10 cm apart. The da Sidney Xi robot was previously primed, prepped and draped then docked along the left side of the patient. I then sat at the robot Da Sidney Xi console where working arms of the robot including Bovie cautery connected to robotic scissors, vessel sealer, needle professional driver, and graspers placed by the administrative services assistant. Moderate adhesions of the midline was identified from his previous exploratory laparotomy of greater omentum to the anterior abdominal wall. Adhesions were addressed extensively over 30 minutes using vessel sealer including blunt and sharp dissection. The remaining fascial defect was measured using a ruler of 10 x 9 cm upper midline after cleaning the peritoneal fat of the abdominal wall. The defect were shallow cheese defects without incarceration. No incarcerated contents was reduced as the peritoneal fat was cleaned from the abdominal wall. Next, hemostasis was checked with cautery. With the type of hernia, coverage with mesh repair was proposed. Next, ventralight ST mesh 15 x 20 cm mesh was placed with the rough side towards the abdominal wall. 2-0 VLOC Stratafix 12-inch sutures were used to fixate the mesh. A final endoscopic imaging was obtained. All instruments and pneumoperitoneum were evacuated from the abdominal cavity. The da Sidney Xi robot was undocked from the patient. I re-scrubbed into the case for closure of incisions. The fascia of the 12-mm port was probed and less than 8-mm in size. The incisions were reapproximated using 4-0 Monocryl in an interrupted subcuticular fashion. Liquid glue was applied to the skin after cleansing the skin with normal saline and dilute hydrogen peroxide. An abdominal binder was placed. At the end of the procedure, needle, sponge, and instrument count had been verified correct by surgical first assistant. The patient was taken to the postanesthesia care unit in stable condition. FINDINGS: 1. Ventral incisional hernia of the epigastrium, 10 x 9 cm, shallow [place] cheese defect Plan - Discharge Summary New Discharge Prescriptions: No Action Tamsulosin [Flomax] 0.4 mg PO DAILY Metoprolol Tartrate [Lopressor] 50 mg PO BID Hydrocodone/Acetaminophen [[place] 5-325] 1 tab PO Q6HR PRN PRN Reason: Pain levETIRAcetam [Keppra] 1,500 mg PO BID@0700,1900 hydrALAZINE HCL [Apresoline] 25 mg PO BID Famotidine 20 mg PO DAILY Donepezil [Aricept] 10 mg PO DAILY Citalopram Hydrobromide [Citalopram HBr] 40 mg PO DAILY Atorvastatin [Lipitor] 80 mg PO HS amLODIPine [Norvasc] 10 mg PO DAILY Aspirin 325 mg PO HS QUEtiapine FUMARATE [SEROquel XR] 150 mg PO HS Lisinopril [Zestril] 10 mg PO DAILY Levothyroxine Sodium [Synthroid] 25 mcg PO DAILY lamoTRIgine [LaMICtal Xr] 50 mg PO DAILY Discharge Medication List Aspirin 325 mg PO HS 02/15/16 [History] Atorvastatin [Lipitor] 80 mg PO HS 02/15/16 [History] Citalopram Hydrobromide [Citalopram HBr] 40 mg PO DAILY 02/15/16 [History] Donepezil [Aricept] 10 mg PO DAILY 02/15/16 [History] Famotidine 20 mg PO DAILY 02/15/16 [History] Hydrocodone/Acetaminophen [[place] 5-325] 1 tab PO Q6HR PRN 02/15/16 [History] Metoprolol Tartrate [Lopressor] 50 mg PO BID 02/15/16 [History] Tamsulosin [Flomax] 0.4 mg PO DAILY 02/15/16 [History] amLODIPine [Norvasc] 10 mg PO DAILY 02/15/16 [History] hydrALAZINE HCL [Apresoline] 25 mg PO BID 02/15/16 [History] levETIRAcetam [Keppra] 1,500 mg PO BID@0700,1900 02/15/16 [History] Lisinopril [Zestril] 10 mg PO DAILY 03/01/16 [History] QUEtiapine FUMARATE [SEROquel XR] 150 mg PO HS 03/01/16 [History] Levothyroxine Sodium [Synthroid] 25 mcg PO DAILY 06/24/16 [History] lamoTRIgine [LaMICtal Xr] 50 mg PO DAILY 01/23/18 [History]
[2018-01-30 12:58] VITALS: TEMP 97.1
[2018-01-30] MEDS ORDERED: HYDROmorphone 1 MG/ML 1 ML SYRINGE IVP ONE ×3 (13:27→13:37)
--- NOTE | 2018-01-30 13:56 | P.ONQ ---
Anesthesiology Proc Note - PNB - Peripheral Nerve Block Performed Bilateral Rectus Abdominis Single Time Out Performed: Yes Procedure Start Time: :18 Procedure Stop Time: Indication: Acute Post-Operative Pain, Requested by physician Sedation Type: Sedate with meaningful contact maintained Preparation: Sterile Prep Position: Supine Needle Size: 50mm (2") Needle Gauge: 21 Technique: Ultrasound Injectate: 0.5% Ropivacaine (see comment for volume) (ropi .5% 15cc each side) Blood Aspirated: No Pain Paresthesia on Injection Noted: No Resistance on Injection: Normal Events: Uneventful and Well Tolerated
[2018-01-30] MEDS ORDERED: HYDROcodone/APAP 5-325MG 1 EACH TAB PO ONE (14:06)
[2018-01-30 14:27] VITALS: BP 131/87; PULSE 82; RESP 16
== END 2018-01-30 14:49 | disposition home or self-care (01) ==
LOC: OR 08:50
PROVIDERS: ATTEND Surgery Plastic and Reconstructive Surgery
DX: K43.0 Incisional hernia with obstruction, without gangrene (principal); K66.0 Peritoneal adhesions (postprocedural) (postinfection); I11.9 Hypertensive heart disease without heart failure; I69.351 Hemiplegia and hemiparesis following cerebral infarction affecting right dominant side; I69.328 Other speech and language deficits following cerebral infarction; I69.311 Memory deficit following cerebral infarction; I69.398 Other sequelae of cerebral infarction; Z87.891 Personal history of nicotine dependence; G40.909 Epilepsy, unspecified, not intractable, without status epilepticus; F32.9 Major depressive disorder, single episode, unspecified; F41.1 Generalized anxiety disorder; E78.5 Hyperlipidemia, unspecified; K21.9 Gastro-esophageal reflux disease without esophagitis; E66.01 Morbid (severe) obesity due to excess calories; Z68.31 Body mass index [BMI] 31.0-31.9, adult; Z79.82 Long term (current) use of aspirin; Z79.890 Hormone replacement therapy; Z79.899 Other long term (current) drug therapy; Z88.0 Allergy status to penicillin
CPT/HCPCS: 49655; S2900

== ENCOUNTER 2020-05-03 09:31 | Day surgery (SDC) | payer OTHER ==
[2020-05-01 11:43] VITALS: BMI 31.9
[~2020-05-03 09:31] MED LIST changes: -HEPARIN SODIUM,PORCINE 5,000 UNIT/ML 1 ML VIAL SQ ONE; -HEPARIN SODIUM,PORCINE 5,000 UNIT/ML 1 ML VIAL SQ STA; +LACTATED RINGERS 1,000 ML IV SCH; -ceFAZolin IN SWFI 2 GM/20 ML SYRINGE IVP ONE
--- NOTE | 2020-05-03 09:32 | P.GSHP ---
History of Present Illness H&P Date: 05/03/20 CHIEF COMPLAINT: Colon screen HISTORY OF PRESENT ILLNESS: The patient is a 49-year-old male who presents for colon screen. Lower endoscopy was offered for further evaluation and management. PAST MEDICAL HISTORY: Please see list. PAST SURGICAL HISTORY: Please see list. MEDICATIONS: Please see list. ALLERGIES: Please see list. SOCIAL HISTORY: No illicit drug use FAMILY HISTORY: No reports of Crohn disease or ulcerative colitis. REVIEW OF ORGAN SYSTEMS: CONSTITUTIONAL: No reports of fevers or chills. PHYSICAL EXAM: VITAL SIGNS: Stable GENERAL: Well-developed pleasant in no acute distress. HEENT: No scleral icterus. Extraocular movements grossly intact. Moist buccal mucosa. NECK: Supple without lymphadenopathy. CHEST: Unlabored respirations. Equal bilateral excursions. CARDIOVASCULAR: Regular rate and rhythm. Distal 2+ pulses. ABDOMEN: Soft, nontender, nondistended. MUSCULOSKELETAL: No clubbing, cyanosis, or edema. ASSESSMENT: 1. Colon screen. PLAN: 1. Recommend proceeding with a lower endoscopy Past Medical History Past Medical History: CVA/TIA, GERD/Reflux, Hyperlipidemia, Hypertension, Memory Impairment, Osteoarthritis (OA), Seizure Disorder, Thyroid Disorder Additional Past Medical History / Comment(s): CVA WITH SEIZURE (AUGUST 2012) WHICH CAUSED MEMORY LOSS, BLIND RIGHT EYE, LIMITED USE RIGHT ARM, NUMBNESS RIGHT LEG AND SLURRED SPEECH., RECEIVED DIALYSIS AFTER STROKE ., LOWER BACK PAIN., WALKS WITHOUT ASSISTANCE. , HX COLON POLYP/ADENOMA. , CONFUSION, AGITATED AT TIMES, JUAN [facility]OS[facility] IS SIGNIFICANT OTHER AND LEGAL GUARDIAN [phone]. History of Any Multi-Drug Resistant Organisms: None Reported Past Surgical History: Heart Catheterization, Hernia Repair Additional Past Surgical History / Comment(s): COLONOSCOPY. Past Anesthesia/Blood Transfusion Reactions: No Reported Reaction Smoking Status: Former smoker - Past Family History Mother Family Medical History: Cancer Medications and Allergies Home Medications Medication Instructions Recorded Confirmed Type Aspirin 325 mg PO HS 02/15/16 05/01/20 History Atorvastatin [Lipitor] 80 mg PO HS 02/15/16 05/01/20 History Famotidine 20 mg PO DAILY 02/15/16 05/01/20 History Metoprolol Tartrate [Lopressor] 50 mg PO DAILY 02/15/16 05/01/20 History Tamsulosin [Flomax] 0.4 mg PO DAILY 02/15/16 05/01/20 History amLODIPine [Norvasc] 10 mg PO DAILY 02/15/16 05/01/20 History hydrALAZINE HCL [Apresoline] 25 mg PO BID 02/15/16 05/01/20 History levETIRAcetam [Keppra] 1,500 mg PO BID 02/15/16 05/01/20 History Levothyroxine Sodium [Synthroid] 25 mcg PO DAILY 06/24/16 05/01/20 History Fenofibrate Nanocrystallized 145 mg PO DAILY 06/29/18 05/01/20 History [Fenofibrate] Memantine [Namenda] 10 mg PO BID 06/29/18 05/01/20 History Lisinopril-Hctz 20-25 mg 1 tab PO DAILY 03/28/20 05/01/20 History [Zestoretic 20-25] Vortioxetine Hydrobromide 20 mg PO DAILY 03/28/20 05/01/20 History [Trintellix] Allergies Allergy/AdvReac Type Severity Reaction Status Date / Time Penicillins Allergy Unknown Verified 05/01/20 10:46 Childhood
[2020-05-03] MEDS ORDERED: LACTATED RINGERS 1,000 ML IV ONE ×2 (09:45)
[2020-05-03 10:04] VITALS: RESP 16; TEMP 97.8
[2020-05-03] MEDS ORDERED: LIDOCAINE 1% INJ 10MG/ML (20 ML MDV) ONE (10:10)
[2020-05-03] MEDS ORDERED: PROPOFOL 10 MG/ML 20 ML VIAL IV ONE (10:10)
--- NOTE | 2020-05-03 10:36 | P.PCN ---
Date of Procedure: 05/03/20 Description of Procedure: PREOPERATIVE DIAGNOSIS: Personal history of malignant colon polyps History of right hemicolectomy POSTOPERATIVE DIAGNOSIS: Personal history of malignant colon polyps History of right hemicolectomy Poor prep OPERATION: Colonoscopy to the anastomosis, right colectomy SURGEON: Jennifer Diaz MD. ANESTHESIA: MAC. INDICATIONS: The patient is an 49-year-old male who presents with personal history of malignant colon polyp and right hemicolectomy. Last colonoscopy 5 years. B enefits and risks were described and informed consent was obtained. DESCRIPTION OF PROCEDURE: The patient had undergone MiraLAX Gatorade prep. He had been brought into the operating room and laid in the left lateral decubitus position. After adequate intravenous sedation, the rectum was examined with 2% lidocaine jelly. The prostate was unremarkable. External hemorrhoids were encountered. The rectal tone was within normal limits. No lesions were palpated in the rectal vault. An Olympus colonoscope was advanced until the ileocolonic anastomosis was viewed. clearly viewed. The prep was poor with moderate liquid stools prohibiting visualization of the mucosa. No large sigmoid diverticulosis was encountered. No focal colitis was found. Retroflexion of the scope demonstrated grade 1 inter nal hemorrhoids without active bleeding or inflammation. The colon was desufflated. The patient had tolerated the procedure well. Withdrawal time was over 6 minutes. FINDINGS: Aronchick preparation quality scale 4 (1-5) Internal hemorrhoids, grade 1 No external hemorrhoids, grade 4. No arteriovenous malformations. No large sigmoid diverticulosis Very poor prep limiting clear view of the colonic mucosa. No focal colitis. RECOMMENDATIONS: Recommend at least a 2 day liquid including colonoscopy prep Repeat colonoscopy in one year due to malignant colon polyp Plan - Discharge Summary Discharge Rx Participant: Yes New Discharge Prescriptions: Continue Tamsulosin [Flomax] 0.4 mg PO DAILY Metoprolol Tartrate [Lopressor] 50 mg PO DAILY levETIRAcetam [Keppra] 1,500 mg PO BID hydrALAZINE HCL [Apresoline] 25 mg PO BID Famotidine 20 mg PO DAILY Atorvastatin [Lipitor] 80 mg PO HS amLODIPine [Norvasc] 10 mg PO DAILY Aspirin 325 mg PO HS Levothyroxine Sodium [Synthroid] 25 mcg PO DAILY Memantine [Namenda] 10 mg PO BID Fenofibrate Nanocrystallized [Fenofibrate] 145 mg PO DAILY Lisinopril-Hctz 20-25 mg [Zestoretic 20-25] 1 tab PO DAILY Vortioxetine Hydrobromide [Trintellix] 20 mg PO DAILY Discharge Medication List Aspirin 325 mg PO HS 02/15/16 [History] Atorvastatin [Lipitor] 80 mg PO HS 02/15/16 [History] Famotidine 20 mg PO DAILY 02/15/16 [History] Metoprolol Tartrate [Lopressor] 50 mg PO DAILY 02/15/16 [History] Tamsulosin [Flomax] 0.4 mg PO DAILY 02/15/16 [History] amLODIPine [Norvasc] 10 mg PO DAILY 02/15/16 [History] hydrALAZINE HCL [Apresoline] 25 mg PO BID 02/15/16 [History] levETIRAcetam [Keppra] 1,500 mg PO BID 02/15/16 [History] Levothyroxine Sodium [Synthroid] 25 mcg PO DAILY 06/24/16 [History] Fenofibrate Nanocrystallized [Fenofibrate] 145 mg PO DAILY 06/29/18 [History] Memantine [Namenda] 10 mg PO BID 06/29/18 [History] Lisinopril-Hctz 20-25 mg [Zestoretic 20-25] 1 tab PO DAILY 03/28/20 [History] Vortioxetine Hydrobromide [Trintellix] 20 mg PO DAILY 03/28/20 [History] Follow up Appointment(s)/Referral(s): Jennifer Diaz MD [STAFF PHYSICIAN] - As Needed Patient Instructions/Handouts: Constipation (DC), Colonoscopy (DC) Activity/Diet/Wound Care/Special Instructions: Repeat colonoscopy one year, 2020. Recommend 2 day prep with liquid diet. Discharge Disposition: HOME SELF-CARE
[2020-05-03 11:06] VITALS: BP 120/73; PULSE 56
== END 2020-05-03 11:20 | disposition home or self-care (01) ==
LOC: ORWHC2ENDO 09:31
PROVIDERS: ATTEND Surgery Plastic and Reconstructive Surgery
DX: Z12.11 Encounter for screening for malignant neoplasm of colon (principal); K64.0 First degree hemorrhoids; Z86.010 Personal history of colon polyps; I10 Essential (primary) hypertension; K21.9 Gastro-esophageal reflux disease without esophagitis; E78.5 Hyperlipidemia, unspecified; M19.90 Unspecified osteoarthritis, unspecified site; G40.909 Epilepsy, unspecified, not intractable, without status epilepticus; R41.3 Other amnesia; E07.9 Disorder of thyroid, unspecified; H54.61 Unqualified visual loss, right eye, normal vision left eye; Z79.82 Long term (current) use of aspirin; Z79.890 Hormone replacement therapy; Z79.899 Other long term (current) drug therapy; Z86.73 Personal history of transient ischemic attack (TIA), and cerebral infarction without residual deficits; Z98.890 Other specified postprocedural states; Z87.891 Personal history of nicotine dependence; Z90.49 Acquired absence of other specified parts of digestive tract; Z80.9 Family history of malignant neoplasm, unspecified; Z88.0 Allergy status to penicillin
CPT/HCPCS: J2001; J2704; G0105; 45378

== ENCOUNTER → 2022-02-13 | Outpatient (CLI) | payer OTHER ==
--- NOTE | 2022-02-13 15:17 | CT ---
EXAMINATION TYPE: CT chest abdomen wo con DATE OF EXAM: 02/13/2022 COMPARISON: 05/28/2021 HISTORY: Renal mass-left side CT DLP: 972.6 mGycm, Automated exposure control for dose reduction was used. CONTRAST: Performed injected with 0 mL of Isovue 300. TECHNIQUE: Axial images were obtained at 5 mm thick sections. Reconstructed images are reviewed on [email or web address] computer in the coronal plane. FINDINGS: Portion of the thyroid visualized is normal. There is some mild pleural thickening along the posterior right lung apex. Example image series 4 [id number]. Some minimal pleural thickening is in the posterior left upper lung field. Series 4 image 10. No enlarged mediastinal or hilar adenopathy is evident. The ascending aorta diameter at the level o f the main pulmonary artery is 3.9 cm. The main pulmonary artery diameter at the bifurcation is 2.[address] ABDOMEN: Liver: Normal Spleen: Normal Pancreas: Normal Adrenal glands: The adrenal glands are normal. Gallbladder: Normal Kidneys: There is a 4.1 by 3.8 x 4.5 cm slightly hypodense mass on the anterior left mid kidney. Prev ious measurement 4.1 x 3.7 x 3.5. This has enlarged over the interval. Delineation is somewhat less d istinct with out intravenous contrast due to renal function at time of this exam. No renal cysts are clearly evident on the noncontrast study. No renal stones are present. The right k idney appears unremarkable. No hydronephrosis of either kidney is evident. Aorta: Vascular calcification is within the aorta. Inferior vena cava: Normal. IMPRESSIONS: 1. Mass within the anterior left mid kidney has enlarged from comparison. 2. No suspicious metastatic lesions to the chest are identified. Some mild pleural thickening may be present posteriorly upper lung reyes and follow-up CT chest in 6 months for these findings can be pe rformed.
== END | disposition home or self-care (01) ==
LOC: RADCTMAIN 10:19
PROVIDERS: ATTEND Urology
DX: D41.02 Neoplasm of uncertain behavior of left kidney (principal)
CPT/HCPCS: 82565; 84520; 71250; 74150; 36415; Q9967

== ENCOUNTER → 2022-02-26 | Outpatient (CLI) | payer OTHER ==
[2022-02-26 19:16] LABS: Basophils # (A) 0.08 X 10*3/uL (0.00-0.10); Basophils % (A) 1.1 %; Eosinophils # (A) 0.19 X 10*3/uL (0.04-0.35); Eosinophils % (A) 2.6 %; HCT 43.7 % (39.6-50.0); HGB 14.7 g/dL (13.0-17.0); Immature Grans, Automated 0.7 %; Lymphocytes # (A) 1.87 X 10*3/uL (0.90-5.00); Lymphocytes % (A) 25.4 %; MCH 30.9 pg (27.0-32.0); MCHC 33.6 g/dL (32.0-37.0); Mean Platelet Volume 10.8 fL (9.5-12.2); Monocytes # (A) 0.73 X 10*3/uL (0.20-1.00); Monocytes % (A) 9.9 %; NRBC Per 100 WBC 0 /100 WBCS (0.0-0.0); Neutrophils # (A) 4.45 X 10*3/uL (1.80-7.70); Neutrophils % (A) 60.3 %; Platelet Count 307 X 10*3/uL (140-440); RBC 4.75 X 10*6/uL (4.40-5.60); RDW 12.2 % (11.5-14.5); WBC 7.37 X 10*3/uL (4.50-10.00)
[2022-02-26 19:17] LABS: African American GFR (CKD) 45.9 (60.0-200.0); Anion Gap 14.8 mmol/L (10.00-18.00); BUN/Creat Ratio 10.9 Ratio (12.00-20.00); Blood Urea Nitrogen 20.6 mg/dL (9.0-27.0); Carbon Dioxide 21.2 mmol/L (20.0-27.5); Non-African American GFR(CKD) 39.6 (60.0-200.0); Potassium 3.6 mmol/L (3.5-5.5)
[2022-02-26 20:03] LABS: Appearance,Urine Cloudy (Clear); Bilirubin,Urine Negative (Negative); Blood,Urine Negative (Negative); Color,Urine Yellow (Yellow); Ketones,Urine Trace mg/dL (Negative); Nitrite,Urine Positive (Negative); PH, Urine 5.5 (5.0-8.0); Specific Gravity,Urine 1.017 (1.001-1.030); Urobilinogen,Urine 0.2 (0.2,1.0)
[2022-02-26 20:28] LABS: Bacteria,Urine 3+ /HPF (None Seen); Calcium Oxalate Crystals,Urine Present /LPF (None Seen)
== END | disposition home or self-care (01) ==
LOC: LABPAT 13:59
PROVIDERS: ATTEND Urology
DX: Z01.812 Encounter for preprocedural laboratory examination (principal); Z01.818 Encounter for other preprocedural examination; D41.02 Neoplasm of uncertain behavior of left kidney
CPT/HCPCS: 80048; 81001; 85025; 87086; 93005

== ENCOUNTER 2022-03-07 10:50 | Observation (INO) | payer OTHER ==
[~2022-03-07 10:50] MED LIST changes: +CLINDAMYCIN 600 MG in DEXTROSE 5% IN WATER 50 ML IVPB PRN; +DEXAMETHASONE SOD PHOSPHATE 4 MG/ML 1 ML VIAL IV ONE; +GENTAMICIN 120 MG in SODIUM CHLORIDE 0.9% 100 ML IVPB PRN; +HYDROmorphone 0.5 MG/0.5 ML SYRINGE IVP PRN; -LACTATED RINGERS 1,000 ML IV SCH; +MIDAZOLAM 2 MG/2 ML VIAL IV PRN; +ONDANSETRON 4 MG/2 ML VIAL IVP ONE
[2022-03-07] MEDS: LACTATED RINGERS 1,000 ML IV SCH (11:40)
[2022-03-07] MEDS ORDERED: LIDOCAINE 1% (10MG/ML) FOR IV START INTRADERMA ONE ×2 (11:40)
[2022-03-07] MEDS ORDERED: MIDAZOLAM 2 MG/2 ML VIAL IVP ONE (12:48)
--- NOTE | 2022-03-07 13:03 | P.HPIHPCON ---
History of Present Illness H&P Date: 03/07/22 Chief Complaint: Left renal mass This is a 51-year-old male with history of a 4.1 cm left-sided renal mass, discussed with him the finding and his rug washer this is highly concerning for renal cell carcinoma. Thus given the close proximity to the hilum and anterior location of the tumor a biopsy would be difficult, I discussed option of a radical versus a partial nephrectomy. Discussed the risk and the benefit of each procedure in detail. They agreed to proceed with a robotic left sided partial nephrectomy. Discussed the risk which includes but not limited to bleeding, infection, injury to nearby organs which includes but not limited spleen, pancreas, bowel. Discussed also risk from anesthesia with him. Discussed the risk of heart attack, stroke, blood clots. Also potential of end- stage renal disease and potential need for hemodialysis. Discussed given the size of the tumor and the close proximity to the hilum potential of converting to radical nephrectomy. He understood all the risk and agreed to proceed Consent for Procedure: I have explained the operation/procedure to the patient, including the risks, benefits, side effects, alternative therapies (including not receiving the proposed treatment or service), the likelihood of the patient achieving his/her goals, and potential recuperation problems for the procedure/sedation/analgesia, as well as any blood products, if indicated. I also explained to the patient the risks, benefits and side effects of the alternatives, as well as the risks related to not receiving the proposed procedure, care, treatment, or services. Past Medical History Past Medical History: CVA/TIA, GERD/Reflux, Hyperlipidemia, Hypertension, Memory Impairment, Osteoarthritis (OA), Seizure Disorder, Thyroid Disorder Additional Past Medical History / Comment(s): CURRENT UTI, ON ANTIBIOTIC PER DR RUIZ. CVA WITH SEIZURE (AUGUST 2012) WHICH CAUSED MEMORY LOSS, BLINDNESS IN RIGHT EYE, LIMITED USE OF RIGHT ARM, NUMBNESS OF RIGHT LEG AND SLURRED SPEECH. RECEIVED DIALYSIS AFTER STROKE. CHRONIC LOWER BACK PAIN. WALKS WITHOUT ASSISTANCE. HX COLON POLYP/ADENOMA. GETS CONFUSED AND AGITATED AT TIMES. History of Any Multi-Drug Resistant Organisms: ESBL Date of last positivie culture/infection: 02/26/22 ESBL E.coli MDRO Source:: Urine Past Surgical History: Heart Catheterization, Hernia Repair Additional Past Surgical History / Comment(s): COLONOSCOPY. Past Anesthesia/Blood Transfusion Reactions: No Reported Reaction Past Psychological History: Anxiety, Depression Smoking Status: Former smoker Past Alcohol Use History: Rare Additional Past Alcohol Use History / Comment(s): STARTED SMOKING AT AGE 17, QUIT IN 2012, SMOKED LESS THAN 1PPD. Past Drug Use History: Marijuana Additional Drug Use History / Comment(s): SMOKES MARIJUANA-INSTRUCTED TO REFRAIN FROM USE FOR AT LEAST 24 HOURS PRIOR TO PROCEDURE. - Past Family History Mother Family Medical History: Cancer Medications and Allergies Home Medications Medication Instructions Recorded Confirmed Type Aspirin 325 mg PO HS 02/15/16 03/05/22 History Atorvastatin [Lipitor] 80 mg PO HS 02/15/16 03/05/22 History Famotidine 20 mg PO QAM 02/15/16 03/05/22 History Metoprolol Tartrate [Lopressor] 50 mg PO QAM 02/15/16 03/05/22 History amLODIPine [Norvasc] 10 mg PO QAM 02/15/16 03/05/22 History hydrALAZINE HCL [Apresoline] 25 mg PO BID 02/15/16 03/05/22 History levETIRAcetam [Keppra] 1,500 mg PO BID 02/15/16 03/05/22 History Levothyroxine Sodium [Synthroid] 25 mcg PO QAM 06/24/16 03/05/22 History Fenofibrate Nanocrystallized 145 mg PO DAILY 06/29/18 03/05/22 History [Fenofibrate] Lisinopril-Hctz 20-25 mg 1 tab PO BID 03/28/20 03/05/22 History [Zestoretic 20-25] Vortioxetine Hydrobromide 20 mg PO QAM 03/28/20 03/05/22 History [Trintellix] nitrofurantoin macrocrystaL 100 mg PO Q12H 03/05/22 03/05/22 History [Nitrofurantoin] Allergies Allergy/AdvReac Type Severity Reaction Status Date / Time Penicillins Allergy Unknown Verified 03/07/22 11:18 Childhood Surgical - Exam Vital Signs Temp Pulse Resp BP Pulse Ox 97.0 F L 86 16 158/94 95 03/07/22 11:17 03/07/22 11:17 03/07/22 11:17 03/07/22 11:17 03/07/22 11:17 - General no distress, no pain - Eyes normal ocular movement, no pale - ENT normal nares, normal mucosa - Respiratory normal expansion, normal respiratory effort - Abdomen Abdomen: soft, non tender Assessment and Plan Assessment: OR for left-sided partial nephrectomy, possible radical
[2022-03-07] MEDS ORDERED: hydrALAZINE HCL 20 MG/ML 1 ML VIAL ONE (13:40)
[2022-03-07] MEDS ORDERED: ROCURONIUM 10 MG/ML (5 ML VIAL) IV ONE (13:40)
[2022-03-07] MEDS ORDERED: MANNITOL 25% 12.5 GM/50 ML VIAL ONE (13:40)
[2022-03-07] MEDS ORDERED: SODIUM CHLORIDE 0.9% (PF) 10 ML VIAL ONE (13:40)
[2022-03-07] MEDS ORDERED: LIDOCAINE 2% INJ 20 MG/ML (2 ML VIAL) ONE (13:40)
[2022-03-07] MEDS ORDERED: METOPROLOL TARTRATE 5 MG/5 ML VIAL IVP ONE (13:40)
[2022-03-07] MEDS ORDERED: fentaNYL (PF) 50 MCG/ML 2 ML AMP ONE (13:40)
[2022-03-07] MEDS ORDERED: NEOSTIGMINE 1 MG/ML 10 ML VIAL ONE (13:40)
[2022-03-07] MEDS ORDERED: HYDROmorphone (PF) 1 MG/ML ONE (13:40)
[2022-03-07] MEDS ORDERED: ROPIVACAINE 5 MG/ML 30 ML VIAL ONE (13:40)
[2022-03-07] MEDS ORDERED: SUCCINYLCHOLINE CHLORIDE 200 MG/10 ML VIAL IV ONE (13:40)
[2022-03-07] MEDS ORDERED: GLYCOPYRROLATE 0.2 MG/ML 2 ML VIAL ONE (13:40)
[2022-03-07] MEDS ORDERED: PROPOFOL 10 MG/ML 20 ML VIAL IV ONE (13:40)
--- NOTE | 2022-03-07 14:20 | P.ANPRN ---
Procedure Note - Anesthesia - Nerve Block Performed Bilateral Erector Spinae Time Out Performed: Yes (12:47) Date of Procedure: 03/07/22 Procedure Start Time: 12:47 Procedure Stop Time: 12:56 Location of Patient: PreOp Indication: Acute Post-Operative Pain, Requested by Surgeon (Dr Muller) Sedation Type: Sedate with meaningful contact maintained Preparation: Sterile Prep Position: Prone Catheter: None Needle Types: Pajunk Needle Gauge: 21 Ultrasound used to visualize needle placement: Yes Ultrasound used to observe medication spread: Yes Injectate: 0.5% Ropivacaine (see comment for volume) (15cc +10cc PF Normal saline each side) Blood Aspirated: No Pain Paresthesia on Injection Noted: No Resistance on Injection: Normal Image Stored and Saved: Yes Events: Uneventful and Well Tolerated
[2022-03-07] MEDS ORDERED: BUPIVACAIN-EPI 0.5%-1:200,000 30 ML VIAL SQ ONE (14:32)
[2022-03-07] MEDS ORDERED: LACTATED RINGERS 1,000 ML IV ONE (16:30)
[2022-03-07] MEDS: methocarbamoL 750 MG TAB PO SCH ×2 (18:12→20:58)
[2022-03-07] MEDS: hydrALAZINE HCL 25 MG TAB PO SCH (20:57)
[2022-03-07] MEDS: ATORVASTATIN 80 MG TAB PO SCH (20:57)
[2022-03-07] MEDS: LISINOPRIL-HCTZ 20-25 MG 1 EACH TAB PO SCH (20:58)
[2022-03-07] MEDS: NITROFURANTOIN MONOHYD/M-CRYST 100 MG CAP PO SCH (20:58)
[2022-03-07] MEDS: HYDROmorphone 1 MG/ML 1 ML SYRINGE IVP PRN (20:59)
[2022-03-08] MEDS: HYDROmorphone 1 MG/ML 1 ML SYRINGE IVP PRN ×4 (00:45→21:57)
[2022-03-08] MEDS: D5-0.45% NACL WITH KCL 20MEQ/L 1,000 ML IV SCH ×3 (00:46→10:43)
[2022-03-08] MEDS: LEVOTHYROXINE 25 MCG TAB PO SCH (04:57)
[2022-03-08] MEDS: METOPROLOL TARTRATE 50 MG TAB PO SCH (05:05)
[2022-03-08] MEDS: amLODIPine 10 MG TAB PO SCH (05:05)
[2022-03-08] MEDS: FAMOTIDINE 20 MG TAB PO SCH (09:37)
[2022-03-08] MEDS: hydrALAZINE HCL 25 MG TAB PO SCH ×2 (09:38→19:06)
[2022-03-08] MEDS: methocarbamoL 750 MG TAB PO SCH ×4 (09:38→20:55)
[2022-03-08] MEDS: LISINOPRIL-HCTZ 20-25 MG 1 EACH TAB PO SCH ×2 (09:38→20:55)
[2022-03-08] MEDS: NITROFURANTOIN MONOHYD/M-CRYST 100 MG CAP PO SCH ×2 (09:39→20:55)
[2022-03-08] MEDS: VORTIOXETINE HYDROBROMIDE 20 MG TABLET PO SCH (10:42)
[2022-03-08 10:46] LABS: Basophils # (A) 0.04 X 10*3/uL (0.00-0.10); Basophils % (A) 0.3 %; Eosinophils # (A) 0 X 10*3/uL (0.04-0.35); Eosinophils % (A) 0 %; HCT 45.5 % (39.6-50.0); HGB 15.2 g/dL (13.0-17.0); Immature Grans, Automated 0.3 %; Lymphocytes # (A) 1.35 X 10*3/uL (0.90-5.00); Lymphocytes % (A) 9.9 %; MCH 31.3 pg (27.0-32.0); MCHC 33.4 g/dL (32.0-37.0); MCV 93.8 fL (80.0-97.0); Monocytes # (A) 1.27 X 10*3/uL (0.20-1.00); Monocytes % (A) 9.3 %; NRBC Per 100 WBC 0 /100 WBCS (0.0-0.0); Neutrophils # (A) 10.89 X 10*3/uL (1.80-7.70); Neutrophils % (A) 80.2 %; Platelet Count 314 X 10*3/uL (140-440); RBC 4.85 X 10*6/uL (4.40-5.60); RDW 12.5 % (11.5-14.5); WBC 13.59 X 10*3/uL (4.50-10.00)
[2022-03-08 11:06] LABS: African American GFR (CKD) 52.2 (60.0-200.0); Anion Gap 13.4 mmol/L (10.00-18.00); BUN/Creat Ratio 9.12 Ratio (12.00-20.00); Blood Urea Nitrogen 15.5 mg/dL (9.0-27.0); Carbon Dioxide 22.6 mmol/L (20.0-27.5)
[2022-03-08 12:11] LABS: HCT 49.5 % (39.0-53.0); HGB 16.5 gm/dL (13.0-17.5); MCH 31.4 pg (25.0-35.0); MCHC 33.3 g/dL (31.0-37.0); MCV 94.2 fL (80.0-100.0); Mean Platelet Volume 9.3; Platelet Count 241 k/uL (150-450); RBC 5.26 m/uL (4.30-5.90); RDW 12.6 % (11.5-15.5)
[2022-03-08] MEDS: hydrALAZINE HCL 20 MG/ML 1 ML VIAL IVP PRN (13:13)
--- NOTE | 2022-03-08 13:59 | P.PN ---
Subjective Progress Note Date: 03/08/22 Principal diagnosis: Left Renal Mass The patient is a 51-year-old male with history of a 4.1 cm left-sided renal mass that was highly concerning for renal cell carcinoma. The patient and his pc tech agreed to proceed with a robotic left partial nephrectomy on 03/07/[address] Muller.The patient tolerated the procedure well. Overnight the patient was tachycardic and had some bleeding from his left lower quadrant lap incision. He patient was kept bedrest, the dressing was re-enforced, and he was kept NPO. The patient states his pain is controlled. He denies any nausea or vomiting. JUSTICE with minimal bloody output. Objective - Vital Signs Vital signs: Vital Signs Temp 97.9 F 03/08/22 11:58 Pulse 79 03/08/22 11:58 Resp 17 03/08/22 11:58 BP 164/107 03/08/22 11:58 Pulse Ox 95 03/08/22 11:58 FiO2 Intake & Output 03/07/22 03/08/22 03/08/22 18:59 06:59 18:59 Intake Total 2207 590 Output Total 450 3600 650 Balance 1757 -3010 -650 Weight 96 kg Intake: IV 2207 Oral 590 Output: Drainage 50 Left Lower Abdomen 50 Urine 400 3600 600 Estimated Blood Loss 50 Other: Voiding Method Indwelling Catheter - Exam General: Well developed, well nourished. No acute distress. HEENT: Head is atraumatic, normocephalic. Lungs: Respirations even and nonlabored. Abdomen/GI: Soft. mild abdominal tenderness. : Mejía draining clear yellow urine Skin: Warm and dry Neurologic: Awake, alert and oriented times 3. CN II-XII grossly intact. Psychiatric: Appropriate mood and affect. JUSTICE with serosing output - Labs CBC & Chem 7: 03/08/22 11:37 03/08/22 06:40 Labs: Abnormal Lab Results - Last 24 Hours (Table) 03/08/22 03/08/22 03/08/22 Range/Units 06:40 06:40 11:37 WBC 13.59 H 12.0 H (4.50-10.00) X 10*3/uL Neutrophils # 10.89 H (1.80-7.70) X 10*3/uL Monocytes # 1.27 H (0.20-1.00) X 10*3/uL Eosinophils # 0 L (0.04-0.35) X 10*3/uL Creatinine 1.7 H (0.6-1.5) mg/dL Est GFR (CKD-EPI)AfAm 52.2 L (60.0-200.0) Est GFR (CKD-EPI)NonAf 45.0 L (60.0-200.0) BUN/Creatinine Ratio 9.12 L (12.00-20.00) Ratio Glucose 179 H (70-110) mg/dL Assessment and Plan Assessment: The patients Hgb remained stable and is currently 16.5, will re-check tomorrow morning. His heart rate is currently 79, however he is quite hypertensive. Hospitalist following for medical management. The patient's diet was advanced and he is no longer bedrest. Continue current pain regimen. Anticipated discharge in 24-48 hours. Plan: Impression and plan of care have been directed as dictated by the signing physician. Chanelle Davidson nurse practitioner acting as scribe for signing physician. Chanelle Davidson [facility] Palliative Care/Urology [facility] [id number] Email: [email or web address] Time with Patient: Less than 30
[2022-03-08 14:29] LABS: Appearance,Urine Clear (Clear); Bilirubin,Urine Negative (Negative); Blood,Urine Moderate (Negative); Color,Urine Yellow; Glucose,Urine (UA) Negative (Negative); Ketones,Urine Negative (Negative); Leukocyte Esterase,Urine Large (Negative); Mucus,Urine Rare /hpf; Nitrite,Urine Negative (Negative); PH, Urine 5.5 (5.0-8.0); Protein,Urine 1+ (Negative); RBC,Urine 13 /hpf (0-5); Specific Gravity,Urine 1.013 (1.001-1.035); Urobilinogen,Urine <2.0 mg/dL (<2.0); WBC,Urine 10 /hpf (0-5)
[2022-03-08] MEDS ORDERED: BENZOCAINE/MENTHOL LOZENG 1 EACH LOZENGE MUCOUS MEM PRN (15:23)
--- NOTE | 2022-03-08 18:36 | P.OP ---
Date of Procedure: 03/07/22 Preoperative Diagnosis: Left renal mass Postoperative Diagnosis: Same Procedure(s) Performed: Left sided robotic partial nephrectomy with intraoperative ultrasound Implants: none Anesthesia: DARLEENA Surgeon: Bear Muller Molecular Biology Director #1: Kylah Corbin Estimated Blood Loss (ml): 75 Pathology: other (left renal mass) Condition: stable Disposition: PACU Indications for Procedure: This is a 51-year-old male with history of a 4.1 cm left-sided renal mass, discussed with him the finding and his graining machine operator this is highly concerning for renal cell carcinoma. Thus given the close proximity to the hilum and anterior location of the tumor a biopsy would be difficult, I discussed option of a radical versus a partial nephrectomy. Discussed the risk and the benefit of each procedure in detail. They agreed to proceed with a robotic left sided partial nephrectomy. Discussed the risk which includes but not limited to bleeding, infection, injury to nearby organs which includes but not limited spleen, pancreas, bowel. Discussed also risk from anesthesia with him. Discussed the risk of heart attack, stroke, blood clots. Also potential of end- stage renal disease and potential need for hemodialysis. Discussed given the size of the tumor and the close proximity to the hilum potential of converting to radical nephrectomy. He understood all the risk and agreed to proceed Operative Findings: large left-sided anterior renal mass, fairly complicated renal vasulature Description of Procedure: The patient was taken to the operating room . General anesthesia was induced. She was prepped and draped in sterile fashion, He was placed in modified flank position . All pressure points were padded. The abdominal insufflation was achieved with the Veress needle. A 8 mm camera port was placed. Robotic trocars, adhesions were taken down along the midline, next programs assistant ports were placed under direct vision. The robot was docked into place. The colon was mobilized medially by incising along the white line of Toldt. Next the spleen and the pancrease were mobilized. Once the bowel, spleen and pancreas were mobilized. At this time the gonadal vessel was visualized. Next after the psoas plane was developed and the ureter was identified.The ureter and gonadal vessel was retracted anteriorly off the psoas muscle. At this point the lower pole artery was identified.. dissection was carried down to the hilum. 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 Next the gonadal vein and both lumbar veins were ligated, using clips for the gonadal vein and the vessel sealer from the lumbar veins. Next the renal artery was further dissected to allow for clamping. after dissecting the hilum attention was then carried to the renal tumor, the kidneys was defatted, next the tumor was identified. The edges of the tumor were defined using an intraoperative ultrasound. Next the hilum was controlled using 2 bulldogs for each artery. Next the renal tumor was enucleated sharply using the monopolar scissors, next the defect was closed using 3-0V lock for the inner layer in running fashion, and 2-0V lock for the outer layer in interrupted fashion. The sliding clip technique was used, there was no entry into the collecting system. bulldog clamp were removed, total clamp time was 20 minutes. The tumor bed was observed and there was no evidence of bleeding. Next hemostatic agents were applied., Next the tumor was bagged, a JUSTICE drain was placed through the lower incision.. Next the robot was undocked. Molecular Biology Director incision was extended. The specimen was removed. Fascia was closed in [id number] fashion. Skin was closed with subcuticular sutures and dermabond. The patient was awoken from general anesthesia in stable condition. Please refer to the final pathology report for final diagnosis.
[2022-03-08] MEDS: ATORVASTATIN 80 MG TAB PO SCH (19:06)
--- NOTE | 2022-03-08 22:32 | CONS ---
CONSULTATION REASON FOR CONSULTATION: Advice regarding hypertension, hyperlipidemia, multiple medical issues, requested by Urology. HISTORY OF PRESENT ILLNESS: This is a 51-year-old gentleman with a past medical history of multiple medical issues including hypertension, hyperlipidemia, being followed by Dr. Gary Meza. The patient had a left renal mass. Dr. Muller is planning left nephrectomy, possibly radical because of concerns of renal cell carcinoma. There is no history of chest pain, or palpitations. No history of any shortness of breath. The patient was on antibiotics for UTI. Previously, the patient also had a history of seizure, which resulted in some memory loss. There is no history of any fever, rigors, or chills. PAST MEDICAL HISTORY: Reviewed include hypertension and hyperlipidemia. Rest of the past medical history reviewed. MEDICATIONS: Home medications are again reviewed, nitrofurantoin, Keppra. Dose and rest of medication noted. ALLERGIES: Penicillin. FAMILY HISTORY: History of cancer in the family. SOCIAL HISTORY: Previous history of smoking. REVIEW OF SYSTEMS: A 14-point review is negative except as mentioned earlier. PHYSICAL EXAMINATION: VITAL SIGNS: Pulse 79, blood pressure 160/107, respirations 17. HEENT: Conjunctivae normal. NECK: No JVD. CARDIOVASCULAR: S1, S2 muffled. RESPIRATIONS: Breath sounds diminished at the bases. No rhonchi. No crackles. ABDOMEN: Soft, obese, nontender. No mass palpable. LEGS: No edema. NERVOUS SYSTEM: No focal deficits. LABS: WBC 12. Rest of the labs are noted. Creatinine is 1.7. ASSESSMENT: 1. Left renal mass, rule out renal cell carcinoma for nephrectomy, possibly radical. 2. Increased WBC. 3. History of recent urinary tract infection. 4. Hypertension. 5. Hyperlipidemia. 6. Seizure disorder. 7. Memory issues. RECOMMENDATIONS AND DISCUSSION: This is a 51-year-old gentleman presented for surgery at this time. The patient was rather stable. I will recommend to resume the home medications. Ensure oxygenation. Incentive spirometry. DVT prophylaxis. Resume the home medications. I will follow the patient closely with you. I would also recommend UA with micro and monitor creatinine closely. Baseline chest x-ray may also be obtained to evaluate the volume fluid status. We will follow the patient closely. The patient may be asked to follow with Dr. Gary Meza, primary physician after discharge. MMODL / IJN: [id number] /
[2022-03-09] MEDS: D5-0.45% NACL WITH KCL 20MEQ/L 1,000 ML IV SCH ×2 (00:19→03:24)
[2022-03-09] MEDS: LEVOTHYROXINE 25 MCG TAB PO SCH (04:39)
[2022-03-09] MEDS: HYDROmorphone 1 MG/ML 1 ML SYRINGE IVP PRN ×2 (04:39→10:39)
[2022-03-09] MEDS: FAMOTIDINE 20 MG TAB PO SCH (08:42)
[2022-03-09] MEDS: amLODIPine 10 MG TAB PO SCH (08:42)
[2022-03-09] MEDS: METOPROLOL TARTRATE 50 MG TAB PO SCH (08:42)
[2022-03-09] MEDS: hydrALAZINE HCL 25 MG TAB PO SCH ×2 (08:42→21:22)
[2022-03-09] MEDS: methocarbamoL 750 MG TAB PO SCH ×4 (08:43→21:23)
[2022-03-09] MEDS: NITROFURANTOIN MONOHYD/M-CRYST 100 MG CAP PO SCH ×2 (08:43→21:23)
[2022-03-09] MEDS: LISINOPRIL-HCTZ 20-25 MG 1 EACH TAB PO SCH ×2 (08:43→21:23)
[2022-03-09] MEDS: VORTIOXETINE HYDROBROMIDE 20 MG TABLET PO SCH (08:44)
[2022-03-09] MEDS: hydrALAZINE HCL 20 MG/ML 1 ML VIAL IVP PRN ×2 (10:40→18:09)
--- NOTE | 2022-03-09 11:13 | P.PN ---
Subjective Progress Note Date: 03/09/22 No acute overnight event, pain is controlled, still having elevated BP. JUSTICE with minimal serosing output Objective - Vital Signs Vital signs: Vital Signs Temp 99.3 F 03/09/22 04:35 Pulse 98 03/09/22 10:41 Resp 16 03/09/22 04:35 BP 150/104 03/09/22 10:41 Pulse Ox 92 L 03/09/22 04:35 FiO2 Intake & Output 03/08/22 03/09/22 03/09/22 18:59 06:59 18:59 Intake Total 900 400 Output Total 1085 900 Balance -185 -500 Intake: Intake, IV Titration 900 Amount D5-0.45% NaCl with KCl 900 20Meq/l 1,000 ml @ 75 mls /hr IV .[id number] [facility] Rx#: [id number] Oral 400 Output: Drainage 110 0 Left Lower Abdomen 110 0 Urine 975 900 Other: Voiding Method Indwelling Catheter Indwelling Catheter Indwelling Catheter - Constitutional General appearance: Present: no acute distress - Gastrointestinal General gastrointestinal: Present: soft. Absent: distended, tenderness - Genitourinary Genitourinary Comment(s): JUSTICE with serosing - Labs CBC & Chem 7: 03/08/22 11:37 03/08/22 06:40 Labs: Abnormal Lab Results - Last 24 Hours (Table) 03/08/22 03/08/22 Range/Units 11:37 13:32 WBC 12.0 H (3.8-10.6) k/uL Urine Protein 1+ H (Negative) Urine Blood Moderate H (Negative) Ur Leukocyte Esterase Large H (Negative) Urine RBC 13 H (0-5) /hpf Urine WBC 10 H (0-5) /hpf Urine Mucus Rare H (None) /hpf Assessment and Plan Assessment: POD #2 S/P left robotic partial nephrectomy, still having elevated BP, -rangel can be removed this morning -F/U on medical Consults recommendation -surgically stable for discharge, JUSTICE will be removed prior to discharge
[2022-03-09 12:51] LABS: HCT 49.4 % (39.6-50.0); HGB 15.9 g/dL (13.0-17.0); MCH 30.6 pg (27.0-32.0); MCHC 32.2 g/dL (32.0-37.0); NRBC Per 100 WBC 0 /100 WBCS (0.0-0.0); Platelet Count 304 X 10*3/uL (140-440); RDW 12.4 % (11.5-14.5); WBC 16.24 X 10*3/uL (4.50-10.00)
[2022-03-09 13:45] LABS: Basophils # (A) 0.05 X 10*3/uL (0.00-0.10); Basophils % (A) 0.3 %; Eosinophils # (A) 0 X 10*3/uL (0.04-0.35); Eosinophils % (A) 0 %; Immature Grans, Automated 0.3 %; Lymphocytes % (A) 8.6 %; Monocytes # (A) 1.63 X 10*3/uL (0.20-1.00); Neutrophils # (A) 13.11 X 10*3/uL (1.80-7.70); Neutrophils % (A) 80.8 %; RBC Morphology NORMAL
[2022-03-09] MEDS: HYDROcodone/APAP 5-325MG 1 EACH TAB PO PRN ×2 (13:51→18:16)
[2022-03-09 13:52] LABS: African American GFR (CKD) 45.6 (60.0-200.0); Anion Gap 10.6 mmol/L (10.00-18.00); BUN/Creat Ratio 8.11 Ratio (12.00-20.00); Blood Urea Nitrogen 15.4 mg/dL (9.0-27.0); Calcium 9.1 mg/dL (8.7-10.3); Carbon Dioxide 21.4 mmol/L (20.0-27.5); Non-African American GFR(CKD) 39.4 (60.0-200.0)
[2022-03-09] MEDS: ATORVASTATIN 80 MG TAB PO SCH (21:23)
[2022-03-10] MEDS: D5-0.45% NACL WITH KCL 20MEQ/L 1,000 ML IV SCH ×2 (03:42→08:29)
[2022-03-10] MEDS: LEVOTHYROXINE 25 MCG TAB PO SCH (06:34)
[2022-03-10] MEDS: FAMOTIDINE 20 MG TAB PO SCH (08:27)
[2022-03-10] MEDS: METOPROLOL TARTRATE 50 MG TAB PO SCH (08:28)
[2022-03-10] MEDS: hydrALAZINE HCL 25 MG TAB PO SCH (08:28)
[2022-03-10] MEDS: amLODIPine 10 MG TAB PO SCH (08:28)
[2022-03-10] MEDS: methocarbamoL 750 MG TAB PO SCH ×2 (08:28→12:50)
[2022-03-10] MEDS: LISINOPRIL-HCTZ 20-25 MG 1 EACH TAB PO SCH (08:28)
[2022-03-10] MEDS: VORTIOXETINE HYDROBROMIDE 20 MG TABLET PO SCH (08:29)
[2022-03-10] MEDS: NITROFURANTOIN MONOHYD/M-CRYST 100 MG CAP PO SCH (08:29)
[2022-03-10] MEDS ORDERED: hydrALAZINE HCL 25 MG TAB PO STA (09:14)
[2022-03-10 11:32] LABS: Basophils # (A) 0.05 X 10*3/uL (0.00-0.10); Basophils % (A) 0.3 %; Eosinophils # (A) 0.01 X 10*3/uL (0.04-0.35); Eosinophils % (A) 0.1 %; HCT 46.5 % (39.6-50.0); HGB 15.9 g/dL (13.0-17.0); Immature Grans, Automated 0.3 %; Lymphocytes # (A) 1.39 X 10*3/uL (0.90-5.00); Lymphocytes % (A) 7.6 %; MCH 31.1 pg (27.0-32.0); MCHC 34.2 g/dL (32.0-37.0); Mean Platelet Volume 11.1 fL (9.5-12.2); Monocytes # (A) 1.64 X 10*3/uL (0.20-1.00); NRBC Per 100 WBC 0 /100 WBCS (0.0-0.0); Neutrophils # (A) 15.11 X 10*3/uL (1.80-7.70); Neutrophils % (A) 82.7 %; Platelet Count 312 X 10*3/uL (140-440); RBC 5.11 X 10*6/uL (4.40-5.60); RDW 12.3 % (11.5-14.5); WBC 18.26 X 10*3/uL (4.50-10.00)
[2022-03-10 11:50] LABS: Anion Gap 14.5 mmol/L (10.00-18.00); BUN/Creat Ratio 9.34 Ratio (12.00-20.00); Blood Urea Nitrogen 18.3 mg/dL (9.0-27.0); Calcium 9.4 mg/dL (8.7-10.3); Carbon Dioxide 23.2 mmol/L (20.0-27.5); Non-African American GFR(CKD) 37.9 (60.0-200.0); Potassium 3.7 mmol/L (3.5-5.5)
[2022-03-10 12:15] VITALS: BP 145/95; PULSE 83; RESP 18; TEMP 97.8
--- NOTE | 2022-03-10 12:23 | P.DS ---
Providers Date of admission: 03/08/22 06:01 Attending physician: Bear Muller MD Consults: 03/08/22 05:49 Consult Physician Routine Consulting Provider: Silvino Stauffer Consult Reason/Comments: Medical managment Do you want consulting provider notified?: Yes Primary care physician: Gary Derrick [facility] Course: This is a 51-year-old male with history of left-sided renal mass, underwent a robotic left-sided partial nephrectomy on March 07. Please see op note dated march 07 for surgery detail. Patient was admitted to the hospital postoperatively. Patient has uncontrolled hypertension postoperatively medical service was consulted. His Mejía catheter was removed on postoperative day #2, his JUSTICE drain was removed on postoperative day #3. Patient had improvement in his blood pressure postop day #3, and was discharged home on postoperative day #3, at time of discharge he was tolerating a diet, and bleeding, and pain was controlled Plan - Discharge Summary Discharge Rx Participant: Yes New Discharge Prescriptions: New methocarbamoL [Robaxin] 1,000 mg PO QID #20 tab HYDROcodone/APAP 5-325MG [Arnett 5-325] 1 tab PO Q4HR PRN 3 Days #18 tab PRN Reason: Pain No Action Metoprolol Tartrate [Lopressor] 50 mg PO QAM levETIRAcetam [Keppra] 1,500 mg PO BID hydrALAZINE HCL [Apresoline] 25 mg PO BID Famotidine 20 mg PO QAM Atorvastatin [Lipitor] 80 mg PO HS amLODIPine [Norvasc] 10 mg PO QAM Aspirin 325 mg PO HS Levothyroxine Sodium [Synthroid] 25 mcg PO QAM Fenofibrate Nanocrystallized [Fenofibrate] 145 mg PO DAILY Lisinopril-Hctz 20-25 mg [Zestoretic 20-25] 1 tab PO BID Vortioxetine Hydrobromide [Trintellix] 20 mg PO QAM nitrofurantoin macrocrystaL [Nitrofurantoin] 100 mg PO Q12H Discharge Medication List Aspirin 325 mg PO HS 02/15/16 [History] Atorvastatin [Lipitor] 80 mg PO HS 02/15/16 [History] Famotidine 20 mg PO QAM 02/15/16 [History] Metoprolol Tartrate [Lopressor] 50 mg PO QAM 09/29/16 [History] amLODIPine [Norvasc] 10 mg PO QAM 02/15/16 [History] hydrALAZINE HCL [Apresoline] 25 mg PO BID 02/15/16 [History] levETIRAcetam [Keppra] 1,500 mg PO BID 02/15/16 [History] Levothyroxine Sodium [Synthroid] 25 mcg PO QAM 06/24/16 [History] Fenofibrate Nanocrystallized [Fenofibrate] 145 mg PO DAILY 06/29/18 [History] Lisinopril-Hctz 20-25 mg [Zestoretic 20-25] 1 tab PO BID 03/28/20 [History] Vortioxetine Hydrobromide [Trintellix] 20 mg PO QAM 03/28/20 [History] nitrofurantoin macrocrystaL [Nitrofurantoin] 100 mg PO Q12H 03/05/22 [History] HYDROcodone/APAP 5-325MG [Arnett 5-325] 1 tab PO Q4HR PRN 3 Days #18 tab 03/09/22 [Rx] methocarbamoL [Robaxin] 1,000 mg PO QID #20 tab 03/09/22 [Rx]
[2022-03-10] MEDS: HYDROcodone/APAP 5-325MG 1 EACH TAB PO PRN (12:52)
[2022-03-10] MEDS ORDERED: hydrALAZINE HCL 50 MG TAB PO SCH (21:00)
--- NOTE | 2022-03-10 23:58 | PN ---
PROGRESS NOTE DATE OF SERVICE: 03/09/2022 SUBJECTIVE: This 51-year-old gentleman, admitted after surgery for renal mass, is being closely monitored. No chest pain. No palpitations. No fever. OBJECTIVE: VITAL SIGNS: Pulse is 81, blood pressure is 127/80, respirations 16. HEENT: Conjunctivae normal. NECK: No JVD. CARDIOVASCULAR: S1, S2. RESPIRATIONS: Breath sounds diminished at the bases. ABDOMEN: Soft. Status post surgery. LABORATORY DATA: WBC 16.24. UA showed large leukocyte esterase and some wbc's. ASSESSMENT: 1. Status post robotic partial nephrectomy. 2. Left renal mass, rule out renal carcinoma for status post nephrectomy. 3. Increased WBC. 4. History of recent urinary tract infection. 5. Hypertension. 6. Hyperlipidemia. 7. Seizure disorder. 8. Memory issues. RECOMMENDATIONS: I recommend to continue current medications and symptomatic treatment. Otherwise, he will closely follow with Urology. Monitor blood pressure closely. The patient had robotic partial nephrectomy. The patient hydralazine p.r.n. and p.o. hydralazine has also been started. Further recommendations to follow. MMODL / IJN: [id number] / LETICIA
--- NOTE | 2022-03-11 02:55 | PN ---
PROGRESS NOTE DATE OF SERVICE: 03/10/2022 SUBJECTIVE: This is a 51-year-old gentleman, who was admitted after left partial nephrectomy and is improving significantly. No chest pain. No palpitations. Blood pressure is slightly elevated. The patient will be planned to be discharged today. PHYSICAL EXAMINATION: VITAL SIGNS: Pulse is 83, blood pressure 140/90, respirations 18. CHEST: Clear to ausculation. ABDOMEN: Soft, status post surgery. CARDIOVASCULAR: S1 and S2 normal. LABORATORY DATA: Reviewed. ASSESSMENT: 1. Status post partial nephrectomy. 2. Hypertension. 3. Increased WBC, improved. 4. History of recent urinary tract infection. 5. Multiple medical issues. RECOMMENDATIONS: Recommend to continue current management and I would recommend hydralazine 50 mg t.i.d. and closely follow with primary physician. Rest of the recommendations per Urology. Further recommendations will follow. ROZ / SAMANTHA: [id number] /
== END 2022-03-10 16:00 | disposition home or self-care (01) ==
LOC: OR 10:50 → 5NMEDONC 17:56 → OR 03-08 06:01 → 5NMEDONC 03-08 06:01
PROVIDERS: ADMIT Urology; ATTEND Urology
DX: C64.2 Malignant neoplasm of left kidney, except renal pelvis (principal); E84.9 Cystic fibrosis, unspecified; I10 Essential (primary) hypertension; E78.5 Hyperlipidemia, unspecified; R41.3 Other amnesia; G40.909 Epilepsy, unspecified, not intractable, without status epilepticus; I69.351 Hemiplegia and hemiparesis following cerebral infarction affecting right dominant side; I97.3 Postprocedural hypertension; I97.191 Other postprocedural cardiac functional disturbances following other surgery; E07.9 Disorder of thyroid, unspecified; M19.90 Unspecified osteoarthritis, unspecified site; I69.398 Other sequelae of cerebral infarction; H54.40 Blindness, one eye, unspecified eye; H54.61 Unqualified visual loss, right eye, normal vision left eye; Z97.2 Presence of dental prosthetic device (complete) (partial); Z87.891 Personal history of nicotine dependence; Z87.440 Personal history of urinary (tract) infections; Z80.9 Family history of malignant neoplasm, unspecified; Z79.890 Hormone replacement therapy; Z79.899 Other long term (current) drug therapy; Z88.0 Allergy status to penicillin
CPT/HCPCS: 64999; 86900; 86901; 80048 ×3; 85025 ×3; 85027; 86850; 81001; 88307; 50543; G0378 ×3; C1762; J2250; J0330; J0360 ×3; J1100; J2710; J2405; J2150; J3010; J1580; J1170 ×3; J2795; J2704; J2001

== ENCOUNTER → 2023-02-01 | Outpatient (CLI) | payer OTHER ==
--- NOTE | 2023-02-01 12:25 | MR ---
EXAMINATION TYPE: MR kidney wo/w con DATE OF EXAM: 02/01/2023 COMPARISON: Most recent prior CT February 13, [address] studies back to 2016 HISTORY: Malignant neoplasm of left kidney treated surgically March 2022 CONTRAST: Standard multiplanar, multisequence MRI departmental protocol images were obtained without contrast a nd with 9.5 mL intravenous Gadavist gadolinium contrast. Imaging performed of the abdomen focusing o n the bilateral kidneys FINDINGS: Exam slightly suboptimal as patient has difficulty holding breath and due to body habitus. Kidneys: Slightly diminished size to both kidneys with cortical thinning is present bilaterally. Ther e are a few small simple appearing thin-walled cysts bilaterally identified. Area of prior partially exophytic mass or neoplasm anteriorly from the mid pole of the left kidney shows focal cortical defec t with residual enhancing mass having washout identified. No new suspicious solid or cystic masses in either kidney clearly seen. No hydronephrosis is noted bilaterally. Other: Lung bases are grossly clear. The liver, gallbladder, spleen, pancreas, and both adrenal gland s appear within normal limits. There is no abnormal small or large bowel dilatation. No intra-abdomin al ascites is seen. Osseous structures are intact. No suspicious abdominal adenopathy is seen. No AAA is noted. IMPRESSION: Successful interval treatment of well-defined partially exophytic ball-shaped mass or dillan plasm anterior aspect midpole level of the left kidney. No new significant solid or cystic renal mass es identified bilaterally.
== END | disposition home or self-care (01) ==
LOC: RADMRIMAIN 10:35
PROVIDERS: ATTEND Urology
DX: C64.2 Malignant neoplasm of left kidney, except renal pelvis (principal)
CPT/HCPCS: 74183; A9585

== ENCOUNTER 2023-09-24 19:13 | Emergency (ER) | payer OTHER ==
--- NOTE | 2023-09-24 22:15 | ED ---
Psych HPI - General Chief Complaint: Psychiatric Symptoms Stated Complaint: Petitioned Time Seen by Provider: 09/24/23 20:07 Source: patient, police Mode of arrival: ambulatory - History of Present Illness Initial Comments: 53-year-old male with past medical history of stroke who presents emergency department for EPS evaluation. Patient was picked up on a court order petition. He was recently charged with criminal activity involving possession of a firearm, drug paraphernalia and managing a drug house. Patient was found to be not competent to stand trial after he was evaluated by a forensic psychologist. Patient has had 24-hour care recently. Caregiver states that he was picked up by police this evening court ordered petition. Patient has no history of p sychologic disease. Patient cannot provide any history - Related Data Home Medications Medication Instructions Recorded Confirmed Atorvastatin [Lipitor] 80 mg PO HS 02/15/16 09/24/23 Famotidine 20 mg PO DAILY 02/15/16 09/24/23 Metoprolol Tartrate [Lopressor] 50 mg PO BID 02/15/16 09/24/23 amLODIPine [Norvasc] 10 mg PO DAILY 02/15/16 09/24/23 levETIRAcetam [Keppra] 1,500 mg PO BID 02/15/16 09/24/23 Levothyroxine Sodium [Synthroid] 25 mcg PO DAILY 06/24/16 09/24/23 Fenofibrate Nanocrystallized 145 mg PO DAILY 06/29/18 09/24/23 [Fenofibrate] Lisinopril-Hctz 20-25 mg 1 tab PO DAILY 03/28/20 09/24/23 [Zestoretic 20-25] Vortioxetine Hydrobromide 20 mg PO DAILY 03/28/20 09/24/23 [Trintellix] Aspirin EC [Ecotrin Low Dose] 81 mg PO DAILY 09/24/23 09/24/23 Cariprazine HCl [Vraylar] 4.5 mg PO DAILY 09/24/23 09/24/23 Glucagon Emergency Kit 1 mg IM ONCE PRN 09/24/23 09/24/23 Insulin Glargine [Lantus Vial] 20 unit SQ HS 09/24/23 09/24/23 polyethylene glycoL 3350 [Miralax] 17 gm PO DAILY PRN 09/24/23 09/24/23 Allergies Allergy/AdvReac Type Severity Reaction Status Date / Time Penicillins Allergy Unknown Verified 09/24/23 21:05 Childhood Review of Systems ROS Statement: Those systems with pertinent positive or pertinent negative responses have been documented in the HPI. ROS Other: All systems not noted in ROS Statement are negative. Past Medical History Past Medical History: CVA/TIA Additional Past Medical History / Comment(s): CVA WITH SEIZURE (AUGUST 2012) WHICH CAUSED MEMORY LOSS, BLIND RIGHT EYE, LIMITED USE RIGHT ARM, NUMBNESS RIGHT LEG AND SLURRED SPEECH., RECEIVED DIALYSIS AFTER STROKE ., LOWER BACK PAIN., WALKS WITHOUT ASSISTANCE. , HX COLON POLYP/ADENOMA. , CONFUSION, AGITATED AT TIMES, JUAN JOSÉ RO IS SIGNIFICANT OTHER AND LEGAL GUARDIAN [phone]. History of Any Multi-Drug Resistant Organisms: ESBL Date of last positivie culture/infection: 02/26/22 ESBL E.coli MDRO Source:: Urine Past Surgical History: Heart Catheterization, Hernia Repair Additional Past Surgical History / Comment(s): COLONOSCOPY. Past Anesthesia/Blood Transfusion Reactions: No Reported Reaction Past Psychological History: Anxiety, Depression Smoking Status: Former smoker Past Alcohol Use History: Rare Past Drug Use History: Marijuana - Past Family History Mother Family Medical History: Cancer General Exam Limitations: physical limitation General appearance: alert, in no apparent distress Head exam: Present: atraumatic, normocephalic, normal inspection Eye exam: Present: normal appearance, PERRL, EOMI. Absent: scleral icterus, conjunctival injection, periorbital swelling ENT exam: Present: normal exam, mucous membranes moist Neck exam: Present: normal inspection. Absent: tenderness, meningismus, lymphadenopathy Respiratory exam: Present: normal lung sounds bilaterally. Absent: respiratory distress, wheezes, rales, rhonchi, stridor Cardiovascular Exam: Present: regular rate, normal rhythm, normal heart sounds. Absent: systolic murmur, diastolic murmur, rubs, gallop, clicks GI/Abdominal exam: Present: soft, normal bowel sounds. Absent: distended, tenderness, guarding, rebound, rigid Extremities exam: Present: normal inspection, full ROM, normal capillary refill. Absent: tenderness, pedal edema, joint swelling, calf tenderness Back exam: Present: normal inspection Neurological exam: Present: alert, CN II-XII intact, other (oriented to self) Psychiatric exam: Present: flat affect Skin exam: Present: warm, dry, intact, normal color. Absent: rash Course Vital Signs 09/24/23 09/25/23 09/25/23 20:02 03:28 14:51 Temperature 98.5 F 98.3 F 98.0 F Pulse Rate 57 L 58 L 60 Respiratory 18 17 18 Rate Blood Pressure 191/108 139/85 132/84 O2 Sat by Pulse 99 95 96 Oximetry Medical Decision Making - Medical Decision Making Was pt. sent in by a medical professional or institution (, PA, SOLAR PROCESS ENGINEER, urgent care, hospital, or halfway...) When possible be specific @ -Patient was brought in by police Did you speak to anyone other than the patient for history (EMS, parent, family, police, friend...)? What history was obtained from this source @ -I spoke with police and the caregiver Did you review nursing and triage notes (agree or disagree)? Why? @ -I reviewed and agree with nursing and triage notes Were old charts reviewed (outside hosp., previous admission, EMS record, old EKG, old radiological studies, urgent care reports/EKG's, halfway records)? Report findings @ -I reviewed the evaluation by a forensic psychologist. Paperwork was brought in by police with the court order petition Differential Diagnosis (chest pain, altered mental status, abdominal pain women, abdominal pain men, vaginal bleeding, weakness, fever, dyspnea, syncope, headache, dizziness, GI bleed, back pain, seizure, CVA, palpatations, mental health, musculoskeletal)? @ -Differential Mental Health Depression, anxiety, bipolar, psychosis, schizophrenia, borderline personality, situational depression, adjustment disorder, behavioral disorder, brain tumor, malingering, substance abuse, encephalopathy, medication reaction, dementia, hypothyroidism, degenerative neurologic disorder, lupus.... This is not meant to be all-inclusive list EKG interpreted by me (3pts min.). @ -Not done X-rays interpreted by me (1pt min.). @ -None done CT interpreted by me (1pt min.). @ -None done U/S interpreted by me (1pt. min.). @ -None done What testing was considered but not performed or refused? (CT, X-rays, U/S, labs)? Why? @ -None What meds were considered but not given or refused? Why? @ -None Did you discuss the management of the patient with other professionals (professionals i.e. DrJustin, PA, SOLAR PROCESS ENGINEER, lab, RT, psych nurse, marriage and family social worker, vocal music instructor, teacher, sanitation officer, correctional counselor/case manager)? Give summary @ -Spoke with the EPS nurse Was smoking cessation discussed for >3mins.? @ -No Was critical care preformed (if so, how long)? @ -No Were there social determinants of health that impacted care today? How? (Homelessness, low income, unemployed, alcoholism, drug addiction, transportation, low edu. Level, literacy, decrease access to med. care, group home, rehab)? @ -No Was there de-escalation of care discussed even if they declined (Discuss DNR or withdrawal of care, Hospice)? DNR status @ -No What co-morbidities impacted this encounter? (DM, HTN, Smoking, COPD, CAD, Cancer, CVA, ARF, Chemo, Hep., AIDS, mental health diagnosis, sleep apnea, morbid obesity)? @ -CVA Was patient admitted / discharged? Hospital course, mention meds given and route, prescriptions, significant lab abnormalities, going to OR and other per tinent info. @ -Upon arrival patient was seen and evaluated in room 7. Thorough history and physical exam was performed. I did review the patient's paperwork. He is on a court order pickup. Patient was evaluated twice. He was evaluated by the EPS nurse who spoke to the psychiatrist on-call. The patient was then once again reevaluated by the psychiatrist in person on the following day. They feel that the patient is stable for discharge home as he does have a caregiver and guardian. Patient does not have a immediate threat to himself or others and does not require hospitalization. Patient does need treatment and continue his care due to his history of stroke. This will be obtained through the court system as it is required. Return to the hospital for any new or worsening symptoms Undiagnosed new problem with uncertain prognosis? @ -No Drug Therapy requiring intensive monitoring for toxicity (Heparin, Nitro, Insulin, Cardizem)? @ -No Were any procedures done? @ -No Diagnosis/symptom? 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 @ -Chronic Uncomplicated (without systemic symptoms) or Complicated (systemic symptoms)? @ -Complicated Side effects of treatment? @ -No Exacerbation, Progression, or Severe Exacerbation? @ -No Poses a threat to life or bodily function? How? (Chest pain, [place], [place], pneumonia, PE, COPD, DKA, ARF, appy, cholecystitis, CVA, Diverticulitis, Homicidal, Suicidal, threat to staff... and all critical care pts) @ -No Disposition Clinical Impression: History of CVA (cerebrovascular accident) Disposition: HOME SELF-CARE Condition: Stable Instructions (If sedation given, give patient instructions): Normal Exam (ED) Is patient prescribed a controlled substance at d/c from ED?: No Referrals: Gary Meza DO [Primary Care Provider] - 1-2 days Time of Disposition: 14:16
--- NOTE | 2023-09-25 14:17 | P.CN ---
Psychiatric Consult - . Consult date: 09/25/23 Consult:: 09/25/23 13:05 IDENTIFYING DATA: This patient is a 53 yo male,, currently lives in a house, has no kids REASON FOR REFERRAL: Psychiatry was consulted for psychiatric evaluation HISTORY OF PRESENT ILLNESS: The patient presented to the hospital in the ER yesterday, patient apparently has a history of a stroke. Patient was brought in on a court order pickup and a petition by an analytical tech. As per analytical tech's petition patient apparently was being charged with several counts of drug- related charges and running a drug house, patient apparently had a stroke and then had a forensic evaluation which claimed that patient was deemed not having capacity to stand trial and it is not restorable. Patient was seen today at the bedside. He was perseverating at times, hesitant in his speech, gurgling at times. He was able to say his name, unable to state his age, believes that he was in a forensic center. He believes that it was June 01, 1988. He claims that he does not know why he is in the hospital and is asking about discharge. Patient appears to have very limited insight and judgment. He answered I do not know to several questions about his charges and the legal proceedings. He denied any depression or anxiety at this time, denied any problems with sleep or appetite, was unable to spell "world" backwards. At this time patient denies any suicidal or homical ideations, intent or plan. Patient denies any auditory, visual hallucinations and denies any paranoia or delusions. Patients admits to using marijuana at times and cigarettes. PAST PSYCHIATRIC HISTORY: Patient has a a history of depression, has a history CVA recently. Patient is currently on Trintellix and Vraylar according to EMR. He states that he was previously at the forensic center. Patient denies any psychiatric outpatient follow-up. Patient denies any history of suicide attempts in the past. Past Medical History: CVA/TIA Additional Past Medical History / Comment(s): CVA WITH SEIZURE (AUGUST 2012) WHICH CAUSED MEMORY LOSS, BLIND RIGHT EYE, LIMITED USE RIGHT ARM, NUMBNESS RIGHT LEG AND SLURRED SPEECH., RECEIVED DIALYSIS AFTER STROKE ., LOWER BACK PAIN., WALKS WITHOUT ASSISTANCE. , HX COLON POLYP/ADENOMA. , CONFUSION, AGITATED AT TIMES, JUAN JOSÉ RO IS SIGNIFICANT OTHER AND LEGAL GUARDIAN [phone]. History of Any Multi-Drug Resistant Organisms: ESBL Date of last positivie culture/infection: 02/26/22 ESBL E.coli MDRO Source:: Urine Past Surgical History: Heart Catheterization, Hernia Repair Additional Past Surgical History / Comment(s): COLONOSCOPY. Past Anesthesia/Blood Transfusion Reactions: No Reported Reaction Past Psychological History: Anxiety, Depression Smoking Status: Former smoker Past Alcohol Use History: Rare Past Drug Use History: Marijuana ALLERGIES: as per EMR. CHEMICAL DEPENDENCY HISTORY: as per HPI. FAMILY PSYCHIATRIC/SUBSTANCE USE HISTORY: Denies SOCIAL HISTORY: Patient was born and raised in [facility], denies having any kids, claims that he currently lives in a house, he does not know how far he went in school and does not know what his legal charges. MENTAL STATUS EXAM: General Appearance: Patient appears to be shaved head, laying in bed, stated age is alert, pleasant, times to cooperate. Patient appears to have fair hygiene and grooming wearing hospital gown with fair eye contact. Behavior: Patient is calmly lying in bed without any agitated behavior. Attempts to cooperate. Speech: Patient's speech is gurgle, hesitant and perseverating at times Mood/Affect: Patient reports their mood is "ok", affect is congruent and constricted Suicidality/Homicidality: Patient denies having any suicidal or homicidal ideation intent or plan. Perceptions: Patient denies any visual hallucinations and denies any auditory hallucinations Though content/process: [place], poverty of content. No delusions or paranoia. Memory and concentration: AOX to name only, Cannot spell "WORLD" backwards, only follows some commands Judgment and insight: Appears to be chronically limited/poor IMPRESSIONS: Major Neurocognitive disorder unspecified, likely secondary to CVA History of depressive disorder Cannabis use disorder mild PLAN: -At this time patient DOES NOT meet criteria for inpatient psychiatric admission. -Delirium precautions recommended with patient including - avoiding use of narcotics and BOTTLE TESTER sedatives, limit anticholinergic medications when possible, frequent re-orientation, minimize use of restraints, open window shades during the day and close them at night -Would recommend the following medication changes/additions: can continue with current psychiatric medications. -boom stick worker to provide patient with outpatient mental health/psychiatry resources for appropriate follow up upon discharge -Jingle Writer spoke with patient about substance abuse and the harmful effects on medical and mental health, patient verbally understood and agreed. -patient already had a forensic evaluation completed and was attached to the chart. please refer to that for further details -Communicated plan to patient's nurse -Psychiatry will sign off at this time -Please contact with any questions. 09/25/23 14:09
[2023-09-25 15:11] VITALS: BP 132/84; PULSE 60; RESP 18; TEMP 98
== END 2023-09-25 14:51 | disposition home or self-care (01) ==
LOC: EEVIPCON 19:13 → EC 19:13
DX: Z86.73 Personal history of transient ischemic attack (TIA), and cerebral infarction without residual deficits (principal); F12.90 Cannabis use, unspecified, uncomplicated; Z87.891 Personal history of nicotine dependence; Z88.0 Allergy status to penicillin
CPT/HCPCS: 82075; 99285

== ENCOUNTER → 2023-12-23 | Outpatient (CLI) | payer OTHER ==
--- NOTE | 2024-02-16 15:15 | CT ---
EXAMINATION TYPE: CT chest wo con CT DLP: 423.90 mGycm, Automated exposure control for dose reduction was used. DATE OF EXAM: 01/06/2024 4:39 PM COMPARISON: CT chest abdomen 02/13/2022. CLINICAL INDICATION: Male, 53 year old with history of pleural thickening, left renal neoplasm. TECHNIQUE: Multiple axial images were obtained through the chest without IV contrast. Lack of IV or o ral contrast limits evaluation of solid and hollow organ viscera. . Coronal and sagittal reformats re viewed. Delayed interpretation due to institutional cyber attack. FINDINGS: LUNGS/ PLEURA: No pleural effusion or pneumothorax. No suspicious pulmonary nodule or mass. Minimal r ight lower lobe subsegmental atelectasis. Elevation of the right hemidiaphragm. Fat filled right Carlita dalek hernia. Resolution of left apical posterior pleural thickening. Decreased appearance of posteri or right apical pleural thickening. AIRWAY: Patent and unremarkable.. HEART: Size within normal limits. No sizable pericardial effusion. Small calcification along the LAD. MEDIASTINUM: No evidence of adenopathy. VASCULATURE: No aortic aneurysm. MUSCULOSKELETAL: No acute osseous abnormalities. No aggressive osseous lesion. SOFT TISSUES/LYMPH NODES: Minimal bilateral gynecomastia. LOWER NECK: No significant findings. UPPER ABDOMEN: No significant findings. IMPRESSION: Decrease posterior right apical pleural thickening with resolution of left posterior left apical pleu ral thickening. No new suspicious pulmonary nodules or masses. Nothing to suggest metastasis within t he chest.
== END | disposition home or self-care (01) ==
LOC: RADCTMAIN 16:45
PROVIDERS: ATTEND Family Medicine
DX: J92.9 Pleural plaque without asbestos (principal)
CPT/HCPCS: 71250

== ENCOUNTER → 2024-01-23 | Outpatient (CLI) | payer OTHER ==
--- NOTE | 2024-01-23 18:38 | MR ---
EXAMINATION TYPE: MR kidney wo/w con DATE OF EXAM: 01/23/2024 3:53 PM INDICATION: Patient age:Male; 53 years old; Reason for study: D41.02 NEOPLASM OF UNCERTAIN BEHAVIOR OF LEFT KIDN; [facility]. COMPARISON: MR kidney 02/01/2023, CT chest 7 02/13/2022, CT abdomen 05/28/2021 TECHNIQUE: Multiplanar multi-sequence imaging was performed without and with IV contrast. The patien t was given 9 ccs of Gadavist intravenously and dynamic imaging was performed. Post IV contrast subtr action images were also submitted for review. FINDINGS: LOWER CHEST: Mild cardiomegaly. Right posterior fat filled Bochdalek hernia. ABDOMEN Liver: Unremarkable. Gallbladder and Bile ducts: Unremarkable. Pancreas: Unremarkable. Spleen: Unremarkable. Adrenal glands: Right adrenal gland is unremarkable. There is a T2 dark ovoid 3.7 cm lesion just infe rior to the left adrenal gland with abutment (series 1101, image 68). There is additional involvement of the pancreatic tail. Demonstrates thin peripheral enhancement on the delayed images without mural nodularity. This demonstrates T1 isointense signal to renal parenchyma. Grossly stable in size from prior MRI but new from prior CT 02/13/2022. Kidneys: No hydronephrosis. Minimal cortical thinning of both kidneys again demonstrated. Few small s imple appearing thin-walled cysts are seen bilaterally. Few stable bilateral small T1 intrinsic hyper intense nonenhancing renal foci with additional new right mid kidney 1.5 cm T1 intrinsic hyperintense lesion. Focal cortical defect from partial nephrectomy involving the midpole the left kidney. No abn ormal contrast enhancement. No new suspicious soft tissue. Stomach and Bowel: Unremarkable as visualized. Peritoneum: No evidence of pneumoperitoneum, free fluid, or adenopathy. Vasculature: Unremarkable. No aortic aneurysm. Abdominal wall: Post surgical changes in the anterior abdominal wall with diastasis rectus. Musculoskeletal: The osseous structures appear intact. IMPRESSION: 1. Postsurgical changes from partial left nephrectomy without MR evidence for local recurrence. 2. Retrospectively there is a stable 2.9 cm lesion in the left anterior perinephric space with abutm ent of the left adrenal gland and pancreatic tail. Demonstrates peripheral thin wall enhancement on d elayed imaging without nodularity. This is indeterminate but may represent postsurgical changes with possible thrombosed aneurysm since there was a vessel running in this region on CT before surgery. Ot her etiologies include metastasis versus other. 3. Bilateral simple renal cysts with additional bilateral T1 intrinsic renal cysts likely representi ng proteinaceous/hemorrhagic cyst. No corresponding enhancement.
== END | disposition home or self-care (01) ==
LOC: RADMRIMAIN 14:14
PROVIDERS: ATTEND Urology
DX: D41.02 Neoplasm of uncertain behavior of left kidney
CPT/HCPCS: 74183

== ENCOUNTER → 2024-09-09 | Outpatient (CLI) | payer OTHER ==
[2024-09-09 20:14] LABS: Blood Urea Nitrogen 49.5 mg/dL (9.0-27.0); Calcium 9.8 mg/dL (8.7-10.3); Carbon Dioxide 23.9 mmol/L (21.6-31.8); Chloride 109 mmol/L (96-109); Glucose 88 mg/dL (70-110); Potassium 4.8 mmol/L (3.5-5.5); Sodium 145 mmol/L (135-145)
== END | disposition home or self-care (01) ==
LOC: LABWHC1 12:53
PROVIDERS: ATTEND Urology
DX: C64.2 Malignant neoplasm of left kidney, except renal pelvis (principal)
CPT/HCPCS: 36415; 80048

== ENCOUNTER → 2024-09-09 | Outpatient (CLI) | payer OTHER ==
--- NOTE | 2024-09-09 13:31 | XR ---
EXAMINATION TYPE: XR chest 2V DATE OF EXAM: 09/09/2024 12:51 PM COMPARISON: 06/28/2016 CLINICAL INDICATION: Male, 54 years old with history of renal ca, TECHNIQUE: XR chest 2V view(s) obtained. FINDINGS: The heart size is normal. The pulmonary vasculature is normal. The lungs are clear. No suspicious changes to suggest renal cancer metastasis. IMPRESSION: 1. No acute pulmonary process. [facility], , 09/09/2024 1:29 PM
--- NOTE | 2024-09-10 18:19 | MR ---
EXAMINATION TYPE: MR kidney wo/w con DATE OF EXAM: 09/09/2024 3:44 PM INDICATION: Patient age:Male; 54 years old; Reason for study: C64.2 renal ca; [facility]. COMPARISON: MR kidney 01/23/2024, 02/01/2023, CT chest abdomen 02/13/2022, CT abdomen 05/28/2021, CT abdom en and pelvis 05/29/2015 TECHNIQUE: Multiplanar multi-sequence imaging was performed without and with IV contrast. The patie nt was given 7.5 ccs of Gadobutrol intravenously and dynamic imaging was performed. Post IV contrast subtraction images were also submitted for review. FINDINGS: LOWER CHEST: Mild cardiomegaly. Right posterior fat filled Bochdalek hernia. ABDOMEN Liver: Similar right hepatic dome and anterior left hepatic lobe wedge-shaped vascular shunts. Gallbladder and Bile ducts: Small T1 hyperintense gallstone identified. No biliary duct dilatation. Pancreas: Unremarkable. Spleen: Unremarkable. Adrenal glands: Right adrenal gland is unremarkable. There is redemonstration of a stable T2 dark ovo id 3.6 cm lesion just inferior to the left adrenal gland with abutment (series 1101, image 67). There is additional abutment of the pancreatic tail. Demonstrates thin peripheral enhancement on the delay ed images without mural nodularity. Demonstrates T1 isointense signal to renal parenchyma. Kidneys: No hydronephrosis. Minimal cortical thinning of both kidneys again demonstrated. Few small s imple appearing thin-walled cysts are seen bilaterally. Few stable bilateral small T1 intrinsic hyper intense nonenhancing renal foci. Focal cortical defect from partial nephrectomy involving the midpole the left kidney. No abnormal contrast enhancement. No new suspicious soft tissue to local suggest re currence. Stomach and Bowel: Unremarkable as visualized. Peritoneum: No evidence of pneumoperitoneum, free fluid, or adenopathy. Migrated surgical clip withi n the anterior right mid abdomen redemonstrated with susceptibility artifact. Vasculature: Unremarkable. No aortic aneurysm. Abdominal wall: Post surgical changes in the anterior abdominal wall with diastasis rectus. Musculoskeletal: The osseous structures appear intact. IMPRESSION: 1. Postsurgical changes from partial left nephrectomy without MR evidence for local recurrence. 2. Stable lesion in the left anterior perinephric space with abutment of the left adrenal gland and pancreatic tail. Demonstrates peripheral thin wall enhancement without nodularity again. Stability fr om multiple exams dating back to 2022 suggests a benign process. May represent a thrombosed aneurysm versus adrenal hematoma versus other etiologies. Doubtful metastasis. 3. Bilateral simple renal cysts with additional bilateral proteinaceous/hemorrhagic renal cysts. No corresponding enhancement. 4. Cholelithiasis. [facility], , 09/10/2024 6:17 PM
== END | disposition home or self-care (01) ==
LOC: RADMRIMAIN 11:31
PROVIDERS: ATTEND Urology
DX: C64.2 Malignant neoplasm of left kidney, except renal pelvis (principal); E27.8 Other specified disorders of adrenal gland; K80.20 Calculus of gallbladder without cholecystitis without obstruction; K86.89 Other specified diseases of pancreas; N28.1 Cyst of kidney, acquired; Z85.528 Personal history of other malignant neoplasm of kidney; Z90.5 Acquired absence of kidney
CPT/HCPCS: 71046; 74183; A9585